=== PATIENT | female | born 1970 | race Two or more races ===

== ENCOUNTER 2018-11-23 03:04 | Emergency (ER) | payer BC ==
[~2018-11-23] VITALS: Ht 162.6 cm; Wt 88.5 kg
[2018-11-23] MEDS ORDERED: METFORMIN HCL1000 M1 ORAL (03:13)
[2018-11-23] MEDS ORDERED: SIMVASTATIN10 MG ORAL (03:13)
[2018-11-23 03:30] VITALS: BP 141/82
[2018-11-23] MEDS ORDERED: Mylanta II UD 30ml ORAL ONE (03:45)
[2018-11-23 04:17] LABS: EOSINOPHILS % (AUTO) 3.7 % (0.0-3.0); HEMATOCRIT 40.4 % (37.0-47.0); HEMOGLOBIN 13.1 G/DL (12.0-16.0); LYMPHOCYTES % (AUTO) 31.4 % (20.0-45.0); MEAN CORPUSCULAR VOLUME 84 FL (80-99); MONOCYTES % (AUTO) 6.9 % (1.0-10.0); PLATELET COUNT 194 K/UL (150-450); RED BLOOD COUNT 4.78 M/UL (4.20-5.40); RED CELL DISTRIBUTION WIDTH 13.4 % (11.6-14.8); WHITE BLOOD COUNT 5.7 K/UL (4.8-10.8)
[2018-11-23 04:23] LABS: APPEARANCE,URINE CLEAR; BILIRUBIN, URINE NEGATIVE (NEGATIVE); COLOR,URINE PALE YELLOW; GLUCOSE, URINE (UA) 4+ (NEGATIVE); KETONES,URINE NEGATIVE (NEGATIVE); LEUKOCYTE ESTERASE ,URINE NEGATIVE (NEGATIVE); NITRITE,URINE NEGATIVE (NEGATIVE); PH,URINE 5 (4.5-8.0); PROTEIN,URINE NEGATIVE (NEGATIVE); UROBILINOGEN,URINE NORMAL MG/DL (0.0-1.0)
[2018-11-23 04:28] LABS: ANION GAP 9 mmol/L (5-15); BLOOD UREA NITROGEN 9 mg/dL (7-18); CALCIUM 9.5 MG/DL (8.5-10.1); CARBON DIOXIDE 28 MMOL/L (21-32); CHLORIDE 100 MMOL/L (98-107); CREATININE 0.8 MG/DL (0.55-1.30); POTASSIUM 3.9 MMOL/L (3.5-5.1); SODIUM 137 MMOL/L (136-145)
[2018-11-23 04:50] LABS: ALANINE AMINOTRANSFERASE 73 U/L (12-78); ALBUMIN 3.8 G/DL (3.4-5.0); ALBUMIN/GLOBULIN RATIO 0.9 (1.0-2.7); ALKALINE PHOSPHATASE 85 U/L (46-116); ASPARTATE AMINO TRANSFERASE 44 U/L (15-37); BILIRUBIN,TOTAL 0.6 MG/DL (0.2-1.0); CKMB 1.4 NG/ML (0.0-3.6); CREATINE KINASE 75 U/L (26-308)
[2018-11-23 05:30] VITALS: BP 99/61
--- NOTE | 2018-11-23 05:40 | Emergency Room Report ---
History of Present Illness General Chief Complaint: Dyspnea/Respdistress Source: Patient Present Illness HPI This is a 48-year-old female with a history of diabetes. She presents with chief complaint of upper chest pain with nausea and vomiting. No diarrhea. Onset was about 2 hours ago. Several episode vomiting. No fever chills but no cough or congestion. Denies any other complaint. Allergies: Coded Allergies: AMOXICILLIN (Verified Allergy, Unknown, 11/23/18) Patient History Past Medical History: see triage record, old chart reviewed, DM Past Surgical History: other Pertinent Family History: none Social History: Denies: smoking Last Menstrual Period: 11/08/18 Now: No : 3 Para: 3 Immunizations: other Reviewed Nursing Documentation: PMH: Agreed; PSxH: Agreed Nursing Documentation-PMH Past Medical History: No History, Except For Hx Diabetes: Yes Review of Systems Eye: Denies: eye pain, blurred vision ENT: Denies: ear pain, nose congestion, throat swelling Respiratory: Denies: cough, shortness of breath Cardiovascular: Reports: chest pain; Denies: palpitations Gastrointestinal: Denies: abdominal pain, diarrhea, nausea, vomiting Musculoskeletal: Denies: back pain, joint pain Skin: Denies: rash Neurological: Denies: headache, numbness Endocrine: Denies: increased thirst, increased urine Hematologic/Lymphatic: Denies: easy bruising All Other Systems: negative except mentioned in HPI Physical Exam Vital Signs Date Time Temp Pulse Resp B/P (MAP) Pulse Ox O2 Delivery O2 Flow Rate FiO2 11/23/18 03:06 97.5 83 18 154/95 100 Room Air vitals normal except for hypertension Sp02 EP Interpretation: reviewed, normal General Appearance: well appearing, no apparent distress, alert Head: normocephalic, atraumatic Eyes: bilateral eye PERRL, bilateral eye EOMI ENT: hearing grossly normal, normal pharynx Neck: full range of motion, supple, no meningismus Respiratory: chest non-tender, lungs clear, normal breath sounds Cardiovascular #1: regular rate, rhythm, no murmur Gastrointestinal: normal bowel sounds, non tender, no mass, no organomegaly, no bruit, non-distended Musculoskeletal: back normal, gait/station normal, normal range of motion Psychiatric: mood/affect normal Skin: warm/dry Medical Decision Making Diagnostic Impression: Primary Impression: Shortness of breath Additional Impressions: Hyperglycemia due to type 2 diabetes mellitus Qualified Codes: E11.65 - Type 2 diabetes mellitus with hyperglycemia Nausea & vomiting Qualified Codes: R11.2 - Nausea with vomiting, unspecified ER Course Patient with shortness of breath with nausea and vomiting. No evidence of ACS, PE, dissection to name a few.. Dose of insulin given here for her diabetes. We 'll discharge home. EKG Diagnostic Results Rate: normal Rhythm: NSR ST Segments: no acute changes ASA given to the pt in ED: No Rhythm Strip Diag. Results EP Interpretation: yes Rate: 84 Rhythm: NSR, no PVC's, no ectopy Chest X-Ray Diagnostic Results Chest X-Ray Diagnostic Results : Chest X-Ray Ordered: Yes # of Views/Limited/Complete: 1 View Indication: Chest Pain EP Interpretation: Yes Interpretation: no consolidation, no effusion, no pneumothorax, no acute cardiopulmonary disease Impression: No acute disease Electronically Signed by: Jordi Prieto MD Last Vital Signs Date Time Temp Pulse Resp B/P (MAP) Pulse Ox O2 Delivery O2 Flow Rate FiO2 11/23/18 03:30 83 18 Room Air 11/23/18 03:30 98.4 141/82 100 Status: improved Disposition: HOME, SELF-CARE Condition: Stable Scripts Ondansetron (Zofran) 4 Mg Tablet 4 MG ORAL Q6H PRN for Nausea & Vomiting, #10 TAB 0 Refills Prov: Jordi Prieto MD 11/23/18 Referrals: NOT CHOSEN IPA/,REFERRING (PCP) Additional Instructions: Follow-up with your DrSterling in 2-3 days. Return if worse. Jordi Prieto MD Nov 23, 2018 05:40
[2018-11-23] MEDS ORDERED: Insulin Human Regular 100units/ml 3ml IV ONE (06:00)
[2018-11-23] MEDS ORDERED: ZOFRAN4 MG ORAL (06:04)
[2018-11-23 06:35] VITALS: BP 130/68
[2018-11-23 06:45] VITALS: BP 130/68
--- NOTE | 2018-11-23 09:25 | Diagnostic Imaging Report ---
Indication: Chest pain Technique: One view of the chest Comparison: none Findings: Lungs and pleural spaces are clear. Heart size is normal Impression: No acute process
== END 2018-11-23 06:58 | disposition home or self-care (01) ==
LOC: EMR 04:00
DX: R06.02 Shortness of breath (principal); E11.65 Type 2 diabetes mellitus with hyperglycemia; R11.2 Nausea with vomiting, unspecified; R07.9 Chest pain, unspecified; Z88.0 Allergy status to penicillin
CPT/HCPCS: 36415; 71045; 80053; 81003; 82550; 82553; 82962; 84484; 85025; 93005; 96361; 96374; 99284; J1815

== ENCOUNTER 2019-03-14 16:50 | Inpatient (IN) | payer BC ==
[~2019-03-14] VITALS: Ht 162.6 cm; Wt 89.8 kg
[~2019-03-14 16:50] MED LIST: METFORMIN HCL1000 M1 ORAL; SIMVASTATIN10 MG ORAL; ZOFRAN4 MG ORAL
--- NOTE | 2019-03-14 17:10 | NUR ---
ED Nurse Note: Patient presents to ER due to low abdominal pain that radiates to back , fever, chills for the past 4-5 days; Patient dx with UTI and has been taking Cipro. Patient AXOx4 and regular, unlabored breathing noted. Reports no N/V or D. Ambulated to the room with steady gait. Report given to ARLENE Douglas.
[2019-03-14] MEDS ORDERED: ACTOS15 MG ORAL (17:13)
[2019-03-14] MEDS ORDERED: Jardiance ORAL (17:13)
[2019-03-14 17:19] VITALS: BP 146/79
[2019-03-14] MEDS ORDERED: Isovue-300 100ml vial INJ PRN (17:30)
[2019-03-14 17:36] LABS: APPEARANCE,URINE SLIGHTLY CLOUDY; BILIRUBIN, URINE 1+ (NEGATIVE); GLUCOSE, URINE (UA) 4+ (NEGATIVE); KETONES,URINE NEGATIVE (NEGATIVE); NITRITE,URINE POSITIVE (NEGATIVE); PH,URINE 7 (4.5-8.0); UROBILINOGEN,URINE 4 MG/DL (0.0-1.0)
[2019-03-14 17:41] LABS: COLOR,URINE YELLOW; PROTEIN,URINE NEGATIVE (NEGATIVE)
[2019-03-14 17:47] LABS: LEUKOCYTE ESTERASE ,URINE 2+ (NEGATIVE)
--- NOTE | 2019-03-14 18:03 | NUR ---
ED Nurse Note: Patient c/o chills. Rectal temp take and ERMD notified.
[2019-03-14 18:05] LABS: BASOPHILS % (AUTO) 1.6 % (0.0-2.0); EOSINOPHILS % (AUTO) 0.4 % (0.0-3.0); HEMATOCRIT 40.9 % (37.0-47.0); HEMOGLOBIN 13.6 G/DL (12.0-16.0); LYMPHOCYTES % (AUTO) 14.8 % (20.0-45.0); MEAN CORPUSCULAR VOLUME 82 FL (80-99); MONOCYTES % (AUTO) 7.8 % (1.0-10.0); NEUTROPHILS % (AUTO) 75.4 % (45.0-75.0); PLATELET COUNT 214 K/UL (150-450); RED BLOOD COUNT 5.01 M/UL (4.20-5.40); RED CELL DISTRIBUTION WIDTH 12.9 % (11.6-14.8); WHITE BLOOD COUNT 5.5 K/UL (4.8-10.8)
[2019-03-14] MEDS ORDERED: Acetaminophen 500mg (ES) tab ORAL ONE (18:15)
[2019-03-14] MEDS ORDERED: Ketorolac 30mg Inj IV ONE (18:15)
[2019-03-14 18:21] LABS: ANION GAP 13 mmol/L (5-15); BLOOD UREA NITROGEN 9 mg/dL (7-18); CALCIUM 9.5 MG/DL (8.5-10.1); CARBON DIOXIDE 27 MMOL/L (21-32); CHLORIDE 96 MMOL/L (98-107); CREATININE 0.8 MG/DL (0.55-1.30); POTASSIUM 3.8 MMOL/L (3.5-5.1); SODIUM 136 MMOL/L (136-145)
[2019-03-14 18:37] LABS: ALANINE AMINOTRANSFERASE 42 U/L (12-78); ALBUMIN 3.9 G/DL (3.4-5.0); ALBUMIN/GLOBULIN RATIO 0.8 (1.0-2.7); ALKALINE PHOSPHATASE 86 U/L (46-116); ASPARTATE AMINO TRANSFERASE 34 U/L (15-37); BILIRUBIN,TOTAL 1.1 MG/DL (0.2-1.0)
[2019-03-14 18:43] LABS: BILIRUBIN,DIRECT 0.2 MG/DL (0.0-0.3)
[2019-03-14] MEDS ORDERED: Clindamycin 600mg 50 ML IVPB ONE (18:45)
--- NOTE | 2019-03-14 19:11 | Diagnostic Imaging Report ---
CT ABDOMEN + PELVIS With Contrast: Comparison: None. Impression: -Bilateral renal patchy areas of hypoattenuation with bilateral urothelial thickening of the ureters and enhancement of the urothelium of the ureters and the bladder are concerning for UTI with bilateral pyelonephritis. -No renal abscess noted on present study. -Normal appendix. -Scattered liquid small bowel contents, which could represent an infectious or inflammatory enteritis. Likely incidental. -Splenomegaly 15.6 cm AP, is of uncertain significance. Correlate clinically. -Likely benign right ovarian functional follicle.
--- NOTE | 2019-03-14 19:13 | NUR ---
HAND-OFF: Report given to Tita JACOBS.
--- NOTE | 2019-03-14 19:31 | Emergency Room Report ---
History of Present Illness General Chief Complaint: Female Urogenital Problems Source: Patient Present Illness [facility] Patient presents with complaints of right lower abdominal pain Reports that on Monday she was diagnosed with UTI by her primary physician has been placed on Cipro her pain however has moved from the suprapubic region now to the lower right abdomen patient feels febrile Increased nausea denies any chest pain or shortness of breath denies any upper abdominal pain denies any vaginal discharge or foul smell Allergies: Coded Allergies: AMOXICILLIN (Verified Allergy, Unknown, 11/23/18) Patient History Past Medical History: see triage record Pertinent Family History: none Last Menstrual Period: on period Reviewed Nursing Documentation: PMH: Agreed; PSxH: Agreed Nursing Documentation-PMH Past Medical History: No History, Except For Hx Diabetes: Yes Review of Systems All Other Systems: negative except mentioned in HPI Physical Exam Vital Signs Date Time Temp Pulse Resp B/P (MAP) Pulse Ox O2 Delivery O2 Flow Rate FiO2 03/14/19 17:07 98.4 106 19 146/79 (101) 96 Room Air Sp02 EP Interpretation: reviewed, normal General Appearance: mild distress - Appears uncomfortable Head: normocephalic, atraumatic Eyes: bilateral eye PERRL, bilateral eye EOMI ENT: hearing grossly normal, normal pharynx, TMs + canals normal, uvula midline Neck: full range of motion, supple, no meningismus, no bony tend Respiratory: lungs clear, normal breath sounds, no rhonchi, no respiratory distress, no retraction, no accessory muscle use Cardiovascular #1: normal peripheral pulses, regular rate, rhythm, no edema, no gallop, no JVD, no murmur Gastrointestinal: normal bowel sounds, non tender - On palpation however subjectively points to right lower quadrant, soft, no mass, no organomegaly, non -distended, no guarding, no hernia, no pulsatile mass, no rebound Genitourinary: no CVA tenderness Musculoskeletal: normal inspection Neurologic: oriented x3, responsive, active directory architect III-XII nml as tested, motor strength/ tone normal, sensory intact Psychiatric: mood/affect normal Skin: normal color, no rash, warm/dry, palpation normal Lymphatic: normal inspection, no adenopathy Medical Decision Making Diagnostic Impression: Primary Impression: Pyelonephritis ER Course With the patient's history and examination, multiple differentials considered, including but not limited to , ectopic , ovarian torsion, gastritis, cholecystitis, pancreatitis, appendicitis Patient's urine sample does show infectious pathology CT imaging shows evidence of bilateral Pyelonephritis given the patient's failed outpatient attempt given the significant discomfort and findings patient is admitted for continued IV antibiotics Labs Test 03/14/19 17:20 03/14/19 17:45 Urine Color Yellow Urine Appearance Slightly cloudy Urine pH 7 (4.5-8.0) Urine Specific [place] 1.005 (1.005-1.035) Urine Protein Negative (NEGATIVE) Urine Glucose (UA) 4+ (NEGATIVE) Urine Ketones Negative (NEGATIVE) Urine Blood 5+ (NEGATIVE) Urine Nitrite Positive (NEGATIVE) Urine Bilirubin 1+ (NEGATIVE) Urine Ictotest Negative (NEGATIVE) Urine Urobilinogen 4 MG/DL (0.0-1.0) Urine Leukocyte Esterase 2+ (NEGATIVE) Urine RBC 5-10 /HPF (0 - 2) Urine WBC 15-20 /HPF (0 - 2) Urine Squamous Epithelial Cells Few /LPF (NONE/OCC) Urine Bacteria Few /HPF (NONE) Urine HCG, Qualitative Negative (NEGATIVE) White Blood Count 5.5 K/UL (4.8-10.8) Red Blood Count 5.01 M/UL (4.20-5.40) Hemoglobin 13.6 G/DL (12.0-16.0) Hematocrit 40.9 % (37.0-47.0) Mean Corpuscular Volume 82 FL (80-99) Mean Corpuscular Hemoglobin 27.1 PG (27.0-31.0) Mean Corpuscular Hemoglobin Concent 33.3 G/DL (32.0-36.0) Red Cell Distribution Width 12.9 % (11.6-14.8) Platelet Count 214 K/UL (150-450) Mean Platelet Volume 8.5 FL (6.5-10.1) Neutrophils (%) (Auto) 75.4 % (45.0-75.0) Lymphocytes (%) (Auto) 14.8 % (20.0-45.0) Monocytes (%) (Auto) 7.8 % (1.0-10.0) Eosinophils (%) (Auto) 0.4 % (0.0-3.0) Basophils (%) (Auto) 1.6 % (0.0-2.0) Sodium Level 136 MMOL/L (136-145) Potassium Level 3.8 MMOL/L (3.5-5.1) Chloride Level 96 MMOL/L (98-107) Carbon Dioxide Level 27 MMOL/L (21-32) Anion Gap 13 mmol/L (5-15) Blood Urea Nitrogen 9 mg/dL (7-18) Creatinine 0.8 MG/DL (0.55-1.30) Estimat Glomerular Filtration Rate > 60 mL/min (>60) Glucose Level 226 MG/DL (74-106) Calcium Level 9.5 MG/DL (8.5-10.1) Total Bilirubin 1.1 MG/DL (0.2-1.0) Direct Bilirubin 0.2 MG/DL (0.0-0.3) Aspartate Amino Transf (AST/SGOT) 34 U/L (15-37) Alanine Aminotransferase (ALT/SGPT) 42 U/L (12-78) Alkaline Phosphatase 86 U/L (46-116) Total Protein 8.5 G/DL (6.4-8.2) Albumin 3.9 G/DL (3.4-5.0) Globulin 4.6 g/dL Albumin/Globulin Ratio 0.8 (1.0-2.7) Lipase 135 U/L (73-393) CT/MRI/US Diagnostic Results CT/MRI/US Diagnostic Results : Impression CT abdomen pelvisImpression: -Bilateral renal patchy areas of hypoattenuation with bilateral urothelial thickening of the ureters and enhancement of the urothelium of the ureters and the bladder are concerning for UTI with bilateral pyelonephritis. -No renal abscess noted on present study. -Normal appendix. -Scattered liquid small bowel contents, which could represent an infectious or inflammatory enteritis. Likely incidental. -Splenomegaly 15.6 cm AP, is of uncertain significance. Correlate clinically. -Likely benign right ovarian functional follicle. Last Vital Signs Date Time Temp Pulse Resp B/P (MAP) Pulse Ox O2 Delivery O2 Flow Rate FiO2 03/14/19 18:02 102.5 03/14/19 17:19 19 146/79 96 Room Air 03/14/19 17:07 106 Status: improved Disposition: ADMITTED INPATIENT Condition: Serious Haydee Ambriz DO Mar 14, 2019 19:31
[2019-03-14 21:20] VITALS: BP 146/79
--- NOTE | 2019-03-14 21:20 | NUR ---
ED Nurse Note: Patient was admited to MS due to severe UTI, and pyelonephritis. AAO x4, VSS at this time, skin is intact, warm to touch. Patient was transfered via gurney, with all belongings.
--- NOTE | 2019-03-14 21:25 | NUR ---
NURSE NOTES: Received report from Hira Anguiano RN. regarding patients transfer to MS floor from ED. Head to toe assessment initiated and noted with no skin issues observed. Belongings checked and noted with endorsing RN and patient at bedside. No S/S of distress or acute pain noted at this time. IV line intact and patent SL, placed on RA tolerating well with no S/S of resp distress or SOB. Safety precaution in place; siderails X2 up, call light within reach, bed in lowest position, brakes and alarm on at all times. Needs and wants anticipated and attended. Orders received and carried out per Christiana Ochoa MD. Will continue plan of care.
[2019-03-14 21:30] VITALS: BP 133/68
[2019-03-14] MEDS ORDERED: Albuterol/Ipratropium 3ml neb HHN PRN (21:30)
[2019-03-14] MEDS ORDERED: Nitroglycerin Subl 0.4mg tab SL PRN (21:30)
[2019-03-14] MEDS ORDERED: Amikacin Rx to dose MISC PRN (21:30)
[2019-03-14] MEDS ORDERED: Miralax 17gm pkt ORAL PRN (21:30)
[2019-03-14] MEDS ORDERED: Vancomycin 1 GM in D5W 275 ML IVPB SCH (22:00)
[2019-03-14] MEDS ORDERED: Amikacin 1,000 MG in NS 110 ML IV SCH (23:00)
[2019-03-14] MEDS: Aztreonam Inj 1 GM in NS 55 ML IVPB SCH (23:56)
[2019-03-15] VITALS: BP 135/73
[2019-03-15] MEDS ORDERED: Vancomycin 1 GM in D5W 275 ML IV SCH (00:30)
[2019-03-15] MEDS ORDERED: Vancomycin 1.25gm Premix IVPB ONE ×2 (03:00)
--- NOTE | 2019-03-15 03:25 | NUR ---
NURSE NOTES: Patient in bed asleep with no S/S of distress noted at this time. Will continue to monitor.
--- NOTE | 2019-03-15 03:50 | NUR ---
NURSE NOTES: Given Tylenol 650mg PO now for complaints of headache 12/02. Will continue to monitor
[2019-03-15 04:00] VITALS: BP 112/66
[2019-03-15] MEDS: NovoLOG Insulin Flexpen SUBQ SCH ×4 (06:37→20:52)
[2019-03-15] MEDS: Aztreonam Inj 1 GM in NS 55 ML IVPB SCH ×3 (06:38→22:04)
[2019-03-15 06:58] LABS: BASOPHILS % (AUTO) 1.7 % (0.0-2.0); EOSINOPHILS % (AUTO) 0.5 % (0.0-3.0); HEMATOCRIT 35.2 % (37.0-47.0); HEMOGLOBIN 11.5 G/DL (12.0-16.0); LYMPHOCYTES % (AUTO) 12.8 % (20.0-45.0); MEAN CORPUSCULAR VOLUME 84 FL (80-99); MONOCYTES % (AUTO) 10.5 % (1.0-10.0); NEUTROPHILS % (AUTO) 74.6 % (45.0-75.0); PLATELET COUNT 165 K/UL (150-450); RED CELL DISTRIBUTION WIDTH 13.3 % (11.6-14.8); WHITE BLOOD COUNT 4.6 K/UL (4.8-10.8)
[2019-03-15 07:04] LABS: ALANINE AMINOTRANSFERASE 41 U/L (12-78); ALBUMIN 2.9 G/DL (3.4-5.0); ALBUMIN/GLOBULIN RATIO 0.7 (1.0-2.7); ALKALINE PHOSPHATASE 73 U/L (46-116); ANION GAP 11 mmol/L (5-15); ASPARTATE AMINO TRANSFERASE 37 U/L (15-37); BILIRUBIN,TOTAL 0.8 MG/DL (0.2-1.0); BLOOD UREA NITROGEN 13 mg/dL (7-18); CALCIUM 8.8 MG/DL (8.5-10.1); CARBON DIOXIDE 24 MMOL/L (21-32); CHLORIDE 102 MMOL/L (98-107); CREATININE 0.9 MG/DL (0.55-1.30); POTASSIUM 3.8 MMOL/L (3.5-5.1); SODIUM 137 MMOL/L (136-145)
--- NOTE | 2019-03-15 07:40 | NUR ---
HAND-OFF: Report given to Keisha Recinos RN. Patient inn bed in stable condition, endorsed plan of care.
[2019-03-15 08:00] VITALS: BP 151/81
--- NOTE | 2019-03-15 08:04 | NUR ---
NURSE NOTES: Received report from ARLENE Larkin. Rounding done with outgoing nurse. Patient a/o x 4 lying on the bed. c/o abdominal pain as 7/10 and pain medicine will be given as MD ordered. Bed in lowest position, call light within reach. Will continue to monitor.
[2019-03-15] MEDS: Morphine Sulfate 2mg/ml Inj(IV/IM USE ONLY) IVP PRN ×2 (08:25→17:14)
[2019-03-15] MEDS: Heparin 5000 units/ml inj SUBQ SCH ×2 (08:26→20:50)
--- NOTE | 2019-03-15 10:30 | NUR ---
NURSE NOTES: Dr. Logan was notified regarding pt got temperature 101.4. is aware.
--- NOTE | 2019-03-15 10:57 | Consultation ---
History of Present Illness General Date patient seen: Mar 15, 2019 Chief Complaint: Female Urogenital Problems Reason for Consultation: Pylonephritis Present Illness HPI Ms. Mata is a 49 yo female with PMHx of DM who presented to the ED on 03/14 with Abdominal pain. She reports that she has had lower abdominal pain for a bout a week and fever. She went to her PMD and was given cipro for a uti. The abdominal pain has gotten worse. In the ED she was ferbiel to 102.[address] scan is consistent with B/L pylonephritis. Patient denies Allergic reaction to Amoxacillin Says that she used it for a infection and had no problems ID was consulted for pylonephritis PMHx/PSHx DM SocHx No E/T/D FamHx Not Contributory Allergies: Coded Allergies: AMOXICILLIN (Verified Allergy, Unknown, 11/23/18) Medication History Scheduled Metformin Hcl* (Metformin Hcl*), 1,000 MG ORAL BID, (Reported) Pioglitazone Hcl* (Actos*), Unknown Dose ORAL DAILY, (Reported) Simvastatin (Zocor), 10 MG ORAL BEDTIME, (Reported) [Jardiance], 10 MG ORAL DAILY, (Reported) Scheduled PRN Ondansetron (Zofran), 4 MG ORAL Q6H PRN for Nausea & Vomiting Patient History Healthcare decision maker Resuscitation status Full Code Advanced Directive on File No Review of Systems ROS Narrative 12 point ROS negative except as noted in the HPI Physical Exam Last 24 Hour Vital Signs Date Time Temp Pulse Resp B/P (MAP) Pulse Ox O2 Delivery O2 Flow Rate FiO2 03/15/19 09:00 102.0 03/15/19 08:00 101.4 99 16 151/81 (104) 99 03/15/19 04:00 100.4 100 20 112/66 (81) 95 03/15/19 00:00 98.1 83 18 135/73 (93) 98 03/14/19 22:01 Room Air 03/14/19 21:30 98.8 84 20 133/68 (89) 99 03/14/19 21:20 98.9 19 146/79 96 Room Air 03/14/19 21:20 98.8 19 146/79 96 Room Air 03/14/19 18:55 101.5 6/20/19 18:54 101.5 03/14/19 18:02 102.5 03/14/19 17:19 98.4 19 146/79 96 Room Air 03/14/19 17:07 98.4 106 19 146/79 (101) 96 Room Air Laboratory Tests Test 03/14/19 17:20 03/14/19 17:45 03/15/19 05:15 Urine Color Yellow Urine Appearance Slightly cloudy Urine pH 7 (4.5-8.0) Urine Specific [place] 1.005 (1.005-1.035) Urine Protein Negative (NEGATIVE) Urine Glucose (UA) 4+ (NEGATIVE) H Urine Ketones Negative (NEGATIVE) Urine Blood 5+ (NEGATIVE) H Urine Nitrite Positive (NEGATIVE) H Urine Bilirubin 1+ (NEGATIVE) H Urine Ictotest Negative (NEGATIVE) Urine Urobilinogen 4 MG/DL (0.0-1.0) H Urine Leukocyte Esterase 2+ (NEGATIVE) H Urine RBC 5-10 /HPF (0 - 2) H Urine WBC 15-20 /HPF (0 - 2) H Urine Squamous Epithelial Cells Few /LPF (NONE/OCC) Urine Bacteria Few /HPF (NONE) Urine HCG, Qualitative Negative (NEGATIVE) White Blood Count 5.5 K/UL (4.8-10.8) 4.6 K/UL (4.8-10.8) L Red Blood Count 5.01 M/UL (4.20-5.40) 4.20 M/UL (4.20-5.40) Hemoglobin 13.6 G/DL (12.0-16.0) 11.5 G/DL (12.0-16.0) L Hematocrit 40.9 % (37.0-47.0) 35.2 % (37.0-47.0) L Mean Corpuscular Volume 82 FL (80-99) 84 FL (80-99) Mean Corpuscular Hemoglobin 27.1 PG (27.0-31.0) 27.4 PG (27.0-31.0) Mean Corpuscular Hemoglobin Concent 33.3 G/DL (32.0-36.0) 32.7 G/DL (32.0-36.0) Red Cell Distribution Width 12.9 % (11.6-14.8) 13.3 % (11.6-14.8) Platelet Count 214 K/UL (150-450) 165 K/UL (150-450) Mean Platelet Volume 8.5 FL (6.5-10.1) 9.4 FL (6.5-10.1) Neutrophils (%) (Auto) 75.4 % (45.0-75.0) H 74.6 % (45.0-75.0) Lymphocytes (%) (Auto) 14.8 % (20.0-45.0) L 12.8 % (20.0-45.0) L Monocytes (%) (Auto) 7.8 % (1.0-10.0) 10.5 % (1.0-10.0) H Eosinophils (%) (Auto) 0.4 % (0.0-3.0) 0.5 % (0.0-3.0) Basophils (%) (Auto) 1.6 % (0.0-2.0) 1.7 % (0.0-2.0) Sodium Level 136 MMOL/L (136-145) 137 MMOL/L (136-145) Potassium Level 3.8 MMOL/L (3.5-5.1) 3.8 MMOL/L (3.5-5.1) Chloride Level 96 MMOL/L (98-107) L 102 MMOL/L (98-107) Carbon Dioxide Level 27 MMOL/L (21-32) 24 MMOL/L (21-32) Anion Gap 13 mmol/L (5-15) 11 mmol/L (5-15) Blood Urea Nitrogen 9 mg/dL (7-18) 13 mg/dL (7-18) Creatinine 0.8 MG/DL (0.55-1.30) 0.9 MG/DL (0.55-1.30) Estimat Glomerular Filtration Rate > 60 mL/min (>60) > 60 mL/min (>60) Glucose Level 226 MG/DL (74-106) H 285 MG/DL (74-106) H Calcium Level 9.5 MG/DL (8.5-10.1) 8.8 MG/DL (8.5-10.1) Total Bilirubin 1.1 MG/DL (0.2-1.0) H 0.8 MG/DL (0.2-1.0) Direct Bilirubin 0.2 MG/DL (0.0-0.3) Aspartate Amino Transf (AST/SGOT) 34 U/L (15-37) 37 U/L (15-37) Alanine Aminotransferase (ALT/SGPT) 42 U/L (12-78) 41 U/L (12-78) Alkaline Phosphatase 86 U/L (46-116) 73 U/L (46-116) Total Protein 8.5 G/DL (6.4-8.2) H 6.8 G/DL (6.4-8.2) Albumin 3.9 G/DL (3.4-5.0) 2.9 G/DL (3.4-5.0) L Globulin 4.6 g/dL 3.9 g/dL Albumin/Globulin Ratio 0.8 (1.0-2.7) L 0.7 (1.0-2.7) L Lipase 135 U/L (73-393) Random Amikacin Level 16.2 ug/mL Microbiology Date/Time Source Procedure Growth Status 03/14/19 17:20 Urine,Clean Catch Urine Culture - Preliminary Gram Negative Bacillus 1 Resulted Height (Feet): 5 Height (Inches): 4.00 Weight (Pounds): 198 Medications Current Medications Medications (Trade) Dose Ordered Sig/Bib Route PRN Reason Start Time Stop Time Status Last Admin Dose Admin Acetaminophen (Tylenol) 650 mg NOW ORAL 03/15/19 03:45 04/14/19 03:44 03/15/19 03:39 Acetaminophen (Tylenol) 650 mg Q4H PRN ORAL fever 03/14/19 21:30 04/13/19 21:29 03/15/19 08:24 Albuterol/ Ipratropium (Albuterol/ Ipratropium) 3 ml Q4H PRN HHN Shortness of Breath 03/14/19 21:30 03/19/19 21:29 Amikacin Protocol (Amikacin pharmacy to dose) 1 ea DAILY PRN MISC Per rx protocol 03/14/19 21:30 04/13/19 21:29 Amikacin Sulfate 1000 mg/Sodium Chloride 114 ml @ 114 mls/hr Q24H IV 03/14/19 23:00 03/21/19 22:59 03/15/19 00:18 Aztreonam 1 gm/ Sodium Chloride 55 ml @ 110 mls/hr EVERY 8 HOURS IVPB 03/14/19 22:00 03/21/19 21:59 03/15/19 06:38 Dextrose (Dextrose 50%) 25 ml Q30M PRN IV Hypoglycemia 03/14/19 21:30 04/13/19 21:29 Heparin Sodium (Porcine) (Heparin 5000 units/ml) 5,000 units EVERY 12 HOURS SUBQ 03/15/19 09:00 04/14/19 08:59 03/15/19 08:26 Insulin Aspart (NovoLOG) BEFORE MEALS AND HS SUBQ 03/15/19 06:30 04/14/19 06:29 03/15/19 06:37 Iopamidol (Isovue-300 100ml) 100 ml NOW PRN INJ Radiology Procedure 03/14/19 17:30 Morphine Sulfate (Morphine Sulfate) 2 mg Q4H PRN IVP Moderate Pain (Pain Scale 4-6) 03/14/19 21:30 03/21/19 21:29 03/15/19 08:25 Nitroglycerin (Ntg) 0.4 mg Q5M PRN SL Prn Chest Pain 03/14/19 21:30 04/13/19 21:29 Ondansetron HCl (Zofran) 4 mg Q6H PRN IVP Nausea & Vomiting 03/14/19 21:30 04/13/19 21:29 03/15/19 08:35 Polyethylene Glycol (Miralax) 17 gm DAILYPRN PRN ORAL Constipation 03/14/19 21:30 04/13/19 21:29 Temazepam (Restoril) 15 mg HSPRN PRN ORAL Insomnia 03/14/19 21:30 03/21/19 21:29 Vancomycin HCl (Vanco rx to dose) 1 ea DAILY PRN MISC Per rx protocol 03/14/19 21:45 04/13/19 21:44 Vancomycin HCl 750 mg/Sodium Chloride 275 ml @ 183.333 mls/hr Q12H IVPB 03/15/19 12:00 03/20/19 11:59 Objective Narrative Gen: NAD HEENT: NCAT, MMM, EOMI, PERRL, No Oral lesion, no scleral icterus NECK: full range of motion, supple, no meningismus, No LAD, No JVD LUNGS: CTAB, No W/C, No Accessory muscle use CARDS: RRR, S1, S2, No M/R/G, ABD: Soft, RLQ pain, ND, No R/G, + BS, No HSM, No Masses : Deferred Ext: C/C/E, Pulses 2+ B/L (DP, Rad): NEURO: A/O x 4, Strength and Sensation Grossly intact PSYCH: Normal mood and affect SKIN: Warm/dry, No rashes Assessment/Plan Assessment/Plan: Ms. Mata is a 49 yo female with PMHx of DM who presented to the ED on 03/14 with Abdominal pain. Pyelonephritis B/L UCx 03/14/19 - GNR Fever to 102.[address] abd 03/14/19 - Bilateral renal patchy areas of hypoattenuation with bilateral urothelial thickening of the ureters and enhancement of the urothelium of the ureters and the bladder are concerning for UTI with bilateral pyelonephritis. Scattered liquid small bowel contents, which could represent an infectious or inflammatory enteritis. Likely incidental. Splenomegaly 15.6 cm AP, is of uncertain significance. Correlate clinically. Likely benign right ovarian functional follicle. Diabetes PLAN: - Continue Amikacin #1 and Aztreonam #1 - S/P Vancomycin #1 - f/u Urine Cx and Blood Cx - Monitor CBC and Temps Thank you for this consult. We will continue to follow the patient during this hospitalization. Nicholas Logan MD Mar 15, 2019 10:57
[2019-03-15 12:00] VITALS: BP 129/65
[2019-03-15] MEDS ORDERED: Vancomycin 750mg/NS 275ml IVPB SCH ×2 (12:00)
--- NOTE | 2019-03-15 12:45 | Consultation ---
History of Present Illness General Date patient seen: Mar 15, 2019 Chief Complaint: Female Urogenital Problems Reason for Consultation: Pylonephritis Present Illness HPI 49 year old female with recent UTI who was started on Cipro, but her symptoms didn't improve presented to ER last night with complaints of right lower abdominal pain, her pain however has moved from the suprapubic region now to the lower right abdomen patient feels febrile. She was found to be septic and CT of abdomen showed pyelonephritis. She is allergic to Amoxicillin which make the treatment more challenging. Allergies: Coded Allergies: AMOXICILLIN (Verified Allergy, Unknown, 11/23/18) Medication History Scheduled Metformin Hcl* (Metformin Hcl*), 1,000 MG ORAL BID, (Reported) Pioglitazone Hcl* (Actos*), Unknown Dose ORAL DAILY, (Reported) Simvastatin (Zocor), 10 MG ORAL BEDTIME, (Reported) [Jardiance], 10 MG ORAL DAILY, (Reported) Scheduled PRN Ondansetron (Zofran), 4 MG ORAL Q6H PRN for Nausea & Vomiting Patient History Healthcare decision maker Resuscitation status Full Code Advanced Directive on File No Past Medical/Surgical History Past Medical/Surgical History: (1) Diabetes mellitus Review of Systems All Other Systems: negative except mentioned in HPI Physical Exam General Appearance: WD/WN Lines, tubes and drains: peripheral HEENT: normocephalic, atraumatic Neck: non-tender, supple Respiratory/Chest: chest wall non-tender, normal breath sounds Cardiovascular/Chest: normal peripheral pulses, regular rhythm, no gallop/ murmur Last 24 Hour Vital Signs Date Time Temp Pulse Resp B/P (MAP) Pulse Ox O2 Delivery O2 Flow Rate FiO2 03/15/19 09:00 102.0 03/15/19 08:00 101.4 99 16 151/81 (104) 99 03/15/19 04:00 100.4 100 20 112/66 (81) 95 03/15/19 00:00 98.1 83 18 135/73 (93) 98 03/14/19 22:01 Room Air 03/14/19 21:30 98.8 84 20 133/68 (89) 99 03/14/19 21:20 98.9 19 146/79 96 Room Air 03/14/19 21:20 98.8 19 146/79 96 Room Air 03/14/19 18:55 101.5 03/14/19 18:54 101.5 03/14/19 18:02 102.5 03/14/19 17:19 98.4 19 146/79 96 Room Air 03/14/19 17:07 98.4 106 19 146/79 (101) 96 Room Air Laboratory Tests Test 03/14/19 17:20 03/14/19 17:45 03/15/19 05:15 03/15/19 11:50 Urine Color Yellow Urine Appearance Slightly cloudy Urine pH 7 (4.5-8.0) Urine Specific [place] 1.005 (1.005-1.035) Urine Protein Negative (NEGATIVE) Urine Glucose (UA) 4+ (NEGATIVE) H Urine Ketones Negative (NEGATIVE) Urine Blood 5+ (NEGATIVE) H Urine Nitrite Positive (NEGATIVE) H Urine Bilirubin 1+ (NEGATIVE) H Urine Ictotest Negative (NEGATIVE) Urine Urobilinogen 4 MG/DL (0.0-1.0) H Urine Leukocyte Esterase 2+ (NEGATIVE) H Urine RBC 5-10 /HPF (0 - 2) H Urine WBC 15-20 /HPF (0 - 2) H Urine Squamous Epithelial Cells Few /LPF (NONE/OCC) Urine Bacteria Few /HPF (NONE) Urine HCG, Qualitative Negative (NEGATIVE) White Blood Count 5.5 K/UL (4.8-10.8) 4.6 K/UL (4.8-10.8) L Red Blood Count 5.01 M/UL (4.20-5.40) 4.20 M/UL (4.20-5.40) Hemoglobin 13.6 G/DL (12.0-16.0) 11.5 G/DL (12.0-16.0) L Hematocrit 40.9 % (37.0-47.0) 35.2 % (37.0-47.0) L Mean Corpuscular Volume 82 FL (80-99) 84 FL (80-99) Mean Corpuscular Hemoglobin 27.1 PG (27.0-31.0) 27.4 PG (27.0-31.0) Mean Corpuscular Hemoglobin Concent 33.3 G/DL (32.0-36.0) 32.7 G/DL (32.0-36.0) Red Cell Distribution Width 12.9 % (11.6-14.8) 13.3 % (11.6-14.8) Platelet Count 214 K/UL (150-450) 165 K/UL (150-450) Mean Platelet Volume 8.5 FL (6.5-10.1) 9.4 FL (6.5-10.1) Neutrophils (%) (Auto) 75.4 % (45.0-75.0) H 74.6 % (45.0-75.0) Lymphocytes (%) (Auto) 14.8 % (20.0-45.0) L 12.8 % (20.0-45.0) L Monocytes (%) (Auto) 7.8 % (1.0-10.0) 10.5 % (1.0-10.0) H Eosinophils (%) (Auto) 0.4 % (0.0-3.0) 0.5 % (0.0-3.0) Basophils (%) (Auto) 1.6 % (0.0-2.0) 1.7 % (0.0-2.0) Sodium Level 136 MMOL/L (136-145) 137 MMOL/L (136-145) Potassium Level 3.8 MMOL/L (3.5-5.1) 3.8 MMOL/L (3.5-5.1) Chloride Level 96 MMOL/L (98-107) L 102 MMOL/L (98-107) Carbon Dioxide Level 27 MMOL/L (21-32) 24 MMOL/L (21-32) Anion Gap 13 mmol/L (5-15) 11 mmol/L (5-15) Blood Urea Nitrogen 9 mg/dL (7-18) 13 mg/dL (7-18) Creatinine 0.8 MG/DL (0.55-1.30) 0.9 MG/DL (0.55-1.30) Estimat Glomerular Filtration Rate > 60 mL/min (>60) > 60 mL/min (>60) Glucose Level 226 MG/DL (74-106) H 285 MG/DL (74-106) H Calcium Level 9.5 MG/DL (8.5-10.1) 8.8 MG/DL (8.5-10.1) Total Bilirubin 1.1 MG/DL (0.2-1.0) H 0.8 MG/DL (0.2-1.0) Direct Bilirubin 0.2 MG/DL (0.0-0.3) Aspartate Amino Transf (AST/SGOT) 34 U/L (15-37) 37 U/L (15-37) Alanine Aminotransferase (ALT/SGPT) 42 U/L (12-78) 41 U/L (12-78) Alkaline Phosphatase 86 U/L (46-116) 73 U/L (46-116) Total Protein 8.5 G/DL (6.4-8.2) H 6.8 G/DL (6.4-8.2) Albumin 3.9 G/DL (3.4-5.0) 2.9 G/DL (3.4-5.0) L Globulin 4.6 g/dL 3.9 g/dL Albumin/Globulin Ratio 0.8 (1.0-2.7) L 0.7 (1.0-2.7) L Lipase 135 U/L (73-393) Random Amikacin Level 16.2 ug/mL Pending Microbiology Date/Time Source Procedure Growth Status 03/14/19 17:20 Urine,Clean Catch Urine Culture - Preliminary Gram Negative Bacillus 1 Resulted Height (Feet): 5 Height (Inches): 4.00 Weight (Pounds): 198 Medications Current Medications Medications (Trade) Dose Ordered Sig/Bib Route PRN Reason Start Time Stop Time Status Last Admin Dose Admin Acetaminophen (Tylenol) 650 mg NOW ORAL 03/15/19 03:45 04/14/19 03:44 03/15/19 03:39 Acetaminophen (Tylenol) 650 mg Q4H PRN ORAL fever 03/14/19 21:30 04/13/19 21:29 03/15/19 08:24 Albuterol/ Ipratropium (Albuterol/ Ipratropium) 3 ml Q4H PRN HHN Shortness of Breath 03/14/19 21:30 03/19/19 21:29 Aztreonam 1 gm/ Sodium Chloride 55 ml @ 110 mls/hr EVERY 8 HOURS IVPB 03/14/19 22:00 03/21/19 21:59 03/15/19 06:38 Dextrose (Dextrose 50%) 25 ml Q30M PRN IV Hypoglycemia 03/14/19 21:30 04/13/19 21:29 Heparin Sodium (Porcine) (Heparin 5000 units/ml) 5,000 units EVERY 12 HOURS SUBQ 03/15/19 09:00 04/14/19 08:59 03/15/19 08:26 Insulin Aspart (NovoLOG) BEFORE MEALS AND HS SUBQ 03/15/19 06:30 04/14/19 06:29 03/15/19 12:04 Iopamidol (Isovue-300 100ml) 100 ml NOW PRN INJ Radiology Procedure 03/14/19 17:30 Morphine Sulfate (Morphine Sulfate) 2 mg Q4H PRN IVP Moderate Pain (Pain Scale 4-6) 03/14/19 21:30 03/21/19 21:29 03/15/19 08:25 Nitroglycerin (Ntg) 0.4 mg Q5M PRN SL Prn Chest Pain 03/14/19 21:30 04/13/19 21:29 Ondansetron HCl (Zofran) 4 mg Q6H PRN IVP Nausea & Vomiting 03/14/19 21:30 04/13/19 21:29 03/15/19 08:35 Polyethylene Glycol (Miralax) 17 gm DAILYPRN PRN ORAL Constipation 03/14/19 21:30 04/13/19 21:29 Temazepam (Restoril) 15 mg HSPRN PRN ORAL Insomnia 03/14/19 21:30 03/21/19 21:29 Vancomycin HCl (Vanco rx to dose) 1 ea DAILY PRN MISC Per rx protocol 03/14/19 21:45 03/15/19 19:00 Vancomycin HCl 750 mg/Sodium Chloride 275 ml @ 183.333 mls/hr Q12H IVPB 03/15/19 12:00 03/20/19 11:59 03/15/19 12:02 Assessment/Plan Problem List: (1) Pyelonephritis ICD Codes: N12 - Tubulo-interstitial nephritis, not specified as acute or chronic SNOMED: 04754725 (2) Sepsis ICD Codes: A41.9 - Sepsis, unspecified organism SNOMED: 18721764 (3) Diabetes mellitus ICD Codes: E11.9 - Type 2 diabetes mellitus without complications SNOMED: 36342857 Assessment/Plan: iv abx urine culture and sensitivity symptomatic treatment check electrolytes dvt prophylaxis. Qi Ochoa MD Mar 15, 2019 12:45
--- NOTE | 2019-03-15 14:47 | NUR ---
*-* INSURANCE *-* ALL CLINICALS HAVE BEEN FAXED TO: [facility] FAX CLINICALS TO: [phone]
--- NOTE | 2019-03-15 15:42 | NUR ---
CASE MANAGEMENT:REVIEW 49 YR OLD FEMALE PRESENTED TO ER CC: ABDOMINAL PAIN RADIATING TO BACK X5 DAYS. FEVER AND CHILLS PMH: SEEN OUTPATIENT BY DR DHALIWAL AND WAS PRESCRIBED CIPRO AND PYRIDIUM SI: PYELONEPHRITIS 98.5 106 19 146/79 96% ON RA GLUCOSE+226 URINE WBC+15-20 IS: 1L NS BOLUS TYLENOL PO IV TORADOL IV CLINDAMYCIN CT ABD/PELVIS URINE REFLEX : TO MED/SURG 3 EAST INTERQUAL CRITERIA MET
[2019-03-15 16:00] VITALS: BP 141/75
[2019-03-15] MEDS: NS w/KCl 20mEq 1000ml 1,000 ML IV SCH (17:13)
--- NOTE | 2019-03-15 19:20 | NUR ---
HAND-OFF: Report given to ARLENE Perkins. Endorsed POC.
[2019-03-15 20:00] VITALS: BP 137/70
--- NOTE | 2019-03-15 20:10 | NUR ---
NURSE NOTES: Received patient awake in bed, no s/s of acute distress, no c/o pain at this time. Family at the bedside. IV access asymptomatic running IVF at 75ml/hr. Fall and safety precautions taken. BRP noted. Will monitor blood sugar closely.
--- NOTE | 2019-03-15 21:45 | History and Physical Report ---
DATE OF ADMISSION: 03/14/2019 CHIEF COMPLAINT: Pelvic pain as well as bilateral flank pain. HISTORY OF PRESENT ILLNESS: This is a 49-year-old very delightful [place]er female with past medical history significant for diabetes type 2, dyslipidemia, , who was presented to the emergency room complaining about abdominal pain associated with bilateral flank pain. It has been going on for almost a week. The patient went to see her primary physician and subsequently was prescribed Cipro for 7 days for urinary tract infection; however, status progressively worsening, pain become worsening associated with fever and chills. No nausea or vomiting. No hematuria. No double vision. Shortly after initial evaluation in the emergency, the patient was admitted to the hospital with sepsis secondary to urinary tract infection, possible pyelonephritis. PAST MEDICAL HISTORY/PAST SURGICAL HISTORY: As above history of diabetes type 2, dyslipidemia, . MEDICATIONS AT HOME: Significant for metformin, Actos, Zocor, and Jardiance. ALLERGIES: To penicillin with vaginal yeast. No rashes or anaphylaxis. FAMILY HISTORY: Brother early age at the age of 37 with coronary artery disease last year and father has a history of diabetes. Mother has history of heart disease. REVIEW OF SYSTEMS: Mostly as above, denies any dysuria, frequency, hematuria. The patient has urinary hesitancy. Denies any hemoptysis or hematochezia. Denies any bright red blood per rectum. Denies any loss of consciousness. Denies any double vision. Denies any fall or head trauma. PHYSICAL EXAMINATION: VITAL SIGNS: On admission, temperature 98.4, pulse of 106, respirations 19, blood pressure 146/79. GENERAL: The patient awake and responsive, no acute distress. HEAD AND NECK: Examination, pupils are equal and reactive to light. Extraocular movements intact. Neck was supple. No JVD. LUNGS: Good air entry. No wheeze or rales. HEART: S1, S2. Regular rate and rhythm. No gallops. ABDOMEN: Soft and nondistended. Tender over suprapubic area, bilateral flank tenderness, morbid obesity. No rebound tenderness. No fluid shift. EXTREMITIES: No cyanosis, clubbing, or edema. NEUROLOGIC: Cranial nerves II through XII grossly intact. Motor is 5/5 in all extremities. Gait is intact. RECTAL: Refused and deferred. GENITOURINARY: Refused and deferred. PSYCHIATRIC: Mood and affect are intact. LABORATORY AND DIAGNOSTIC DATA: Laboratory on admission WBC of 5.5, hemoglobin 13, hematocrit 40, platelets 214. Sodium 136, potassium 3.8, chloride 96, bicarbonate 27, BUN 9, creatinine 0.8, glucose 226, calcium is 9.5. Total bilirubin of 1.1, AST of 34, ALT of 42, alkaline phosphatase 86. Lipase is 135. Urinalysis, +4 glucose, negative ketone, positive nitrite, +2 leukocytes, and 5 to 10 rbc's, 15 to 20 wbc's. The patient had a CT scan of the abdomen pelvic done shows a scattered liquid small bowel content, which would represent an infectious or inflammatory enteritis, normal appendix, splenomegaly, likely benign right ovarian functional follicle, bilateral renal patchy area of hypoattenuation with bilateral urethral thickening of the ureter, enhancement concerned about UTI with bilateral hydronephrosis. ASSESSMENT: 1. Sepsis secondary to urinary tract infection with bilateral hydronephrosis. 2. Diabetes type 2. 3. Obesity. 4. Dyslipidemia. PLAN: Admit the patient to medical floor. We start the patient on broad-spectrum antibiotics with amikacin due to the patient has penicillin allergy. The patient's urine culture preliminary results gram-negative bacilli. We will follow up with Dr. Ochoa, Pulmonary Critical Care consultation as well as Dr. Nicholas Logan from [place]. We will follow up with culture. DVT prophylaxis, SCD. Code status is Full Code. Mir Carlson M.D. DR: Christine JOB#: [id number] CC:
[2019-03-16] VITALS: BP 127/70
[2019-03-16 04:00] VITALS: BP 135/79
[2019-03-16] MEDS: Aztreonam Inj 1 GM in NS 55 ML IVPB SCH ×3 (05:48→21:18)
[2019-03-16] MEDS: NS w/KCl 20mEq 1000ml 1,000 ML IV SCH ×2 (06:02→15:54)
[2019-03-16] MEDS: NovoLOG Insulin Flexpen SUBQ SCH ×4 (06:06→21:19)
[2019-03-16] MEDS: sitaGLIPtin 50mg tab ORAL SCH ×3 (06:08→06:14)
--- NOTE | 2019-03-16 06:54 | Pulmonology Progress Note ---
Assessment/Plan Problems: (1) Pyelonephritis (2) Sepsis (3) Diabetes mellitus Assessment/Plan GNR in urine, sensitivity pending continue abx f/u ID recommendations f/u wbc sliding scale diabetic diet symptomatic treatment dvt prophylaxis. Subjective ROS Limited/Unobtainable: No Interval Events: comfortably sleeping, no new complains Allergies: Coded Allergies: AMOXICILLIN (Verified Allergy, Unknown, 11/23/18) Objective Last 24 Hour Vital Signs Date Time Temp Pulse Resp B/P (MAP) Pulse Ox O2 Delivery O2 Flow Rate FiO2 03/16/19 04:00 98.0 82 18 135/79 (97) 99 03/16/19 00:04 99.3 03/16/19 00:00 99.0 87 20 127/70 (89) 99 03/15/19 23:15 Room Air 03/15/19 20:00 99.7 90 18 137/70 (92) 99 03/15/19 18:00 99.8 03/15/19 16:00 102.8 97 16 141/75 (97) 99 03/15/19 12:00 98.8 86 16 129/65 (86) 99 03/15/19 09:00 Room Air 03/15/19 09:00 102.0 03/15/19 08:00 101.4 99 16 151/81 (104) 99 Intake and Output 03/15/19 03/16/19 19:00 07:00 Intake Total 130 ml 525 ml Balance 130 ml 525 ml Intake IV Total 130 ml 525 ml # Voids 4 4 Objective General Appearance: WD/WN HEENT: atraumatic Respiratory/Chest: chest wall non-tender, normal breath sounds Breasts: no masses Cardiovascular: normal rate Abdomen: soft, non tender, no mass Genitourinary: normal external genitalia Extremities: no clubbing Microbiology Date/Time Source Procedure Growth Status 03/14/19 17:20 Urine,Clean Catch Urine Culture - Preliminary Gram Negative Bacillus 1 Resulted Laboratory Tests 03/15/19 11:50: Random Amikacin Level < 2.5 Current Medications Medications (Trade) Dose Ordered Sig/Bib Route PRN Reason Start Time Stop Time Status Last Admin Dose Admin Acetaminophen (Tylenol) 650 mg NOW ORAL 03/15/19 03:45 04/14/19 03:44 03/15/19 03:39 Acetaminophen (Tylenol) 650 mg Q4H PRN ORAL fever 03/14/19 21:30 04/13/19 21:29 03/15/19 23:34 Albuterol/ Ipratropium (Albuterol/ Ipratropium) 3 ml Q4H PRN HHN Shortness of Breath 03/14/19 21:30 03/19/19 21:29 Aztreonam 1 gm/ Sodium Chloride 55 ml @ 110 mls/hr EVERY 8 HOURS IVPB 03/14/19 22:00 03/21/19 21:59 03/16/19 05:48 Dextrose (Dextrose 50%) 25 ml Q30M PRN IV Hypoglycemia 03/14/19 21:30 04/13/19 21:29 Heparin Sodium (Porcine) (Heparin 5000 units/ml) 5,000 units EVERY 12 HOURS SUBQ 03/15/19 09:00 04/14/19 08:59 03/15/19 20:50 Insulin Aspart (NovoLOG) BEFORE MEALS AND HS SUBQ 03/15/19 06:30 04/14/19 06:29 03/16/19 06:06 Iopamidol (Isovue-300 100ml) 100 ml NOW PRN INJ Radiology Procedure 03/14/19 17:30 Morphine Sulfate (Morphine Sulfate) 2 mg Q4H PRN IVP Moderate Pain (Pain Scale 4-6) 03/14/19 21:30 03/21/19 21:29 03/15/19 17:14 Nitroglycerin (Ntg) 0.4 mg Q5M PRN SL Prn Chest Pain 03/14/19 21:30 04/13/19 21:29 Ondansetron HCl (Zofran) 4 mg Q6H PRN IVP Nausea & Vomiting 03/14/19 21:30 04/13/19 21:29 03/15/19 08:35 Polyethylene Glycol (Miralax) 17 gm DAILYPRN PRN ORAL Constipation 03/14/19 21:30 04/13/19 21:29 Potassium Chloride/Sodium Chloride 1,000 ml @ 75 mls/hr [id number] IV 03/15/19 17:00 04/14/19 16:59 03/15/19 17:13 Sitagliptin Phosphate (Januvia) 50 mg ACBREAKFAST ORAL 03/16/19 06:30 04/15/19 06:29 Temazepam (Restoril) 15 mg HSPRN PRN ORAL Insomnia 03/14/19 21:30 03/21/19 21:29 Qi Ochoa MD Mar 16, 2019 06:54
--- NOTE | 2019-03-16 07:00 | NUR ---
HAND-OFF: Report given to ARLENE John.
--- NOTE | 2019-03-16 07:53 | NUR ---
NURSE NOTES: Received report from Disha JACOBS. Patient is awake alert and oriented x4, no acute distress noted. IV intact and asymptomatic, running IVF as ordered. Patient is reporting pain rated 5-6/10 in posterior flank/lower back, offered patient pain medication but she states she does not want it at this time. Patient updated on plan of care, needs met at this time. Side rails upx2, bed low and locked, call light in reach. Will continue to monitor.
[2019-03-16 08:00] VITALS: BP 117/72
[2019-03-16] MEDS: Heparin 5000 units/ml inj SUBQ SCH ×2 (08:45→20:10)
[2019-03-16 08:48] LABS: BASOPHILS % (AUTO) 1.7 % (0.0-2.0); EOSINOPHILS % (AUTO) 1.9 % (0.0-3.0); HEMATOCRIT 35.5 % (37.0-47.0); HEMOGLOBIN 11.5 G/DL (12.0-16.0); LYMPHOCYTES % (AUTO) 32.7 % (20.0-45.0); MEAN CORPUSCULAR VOLUME 85 FL (80-99); NEUTROPHILS % (AUTO) 53.7 % (45.0-75.0); PLATELET COUNT 167 K/UL (150-450); RED BLOOD COUNT 4.17 M/UL (4.20-5.40); RED CELL DISTRIBUTION WIDTH 13.6 % (11.6-14.8); WHITE BLOOD COUNT 3.8 K/UL (4.8-10.8)
[2019-03-16 09:50] LABS: ALANINE AMINOTRANSFERASE 48 U/L (12-78); ALBUMIN 2.7 G/DL (3.4-5.0); ALBUMIN/GLOBULIN RATIO 0.6 (1.0-2.7); ALKALINE PHOSPHATASE 74 U/L (46-116); ANION GAP 9 mmol/L (5-15); ASPARTATE AMINO TRANSFERASE 43 U/L (15-37); BILIRUBIN,TOTAL 0.6 MG/DL (0.2-1.0); BLOOD UREA NITROGEN 10 mg/dL (7-18); CALCIUM 9.2 MG/DL (8.5-10.1); CARBON DIOXIDE 27 MMOL/L (21-32); CHLORIDE 107 MMOL/L (98-107); CREATININE 0.7 MG/DL (0.55-1.30); PHOSPHORUS 3.7 MG/DL (2.5-4.9); POTASSIUM 3.7 MMOL/L (3.5-5.1); SODIUM 143 MMOL/L (136-145)
[2019-03-16 12:00] VITALS: BP 122/71
--- NOTE | 2019-03-16 13:31 | Internal Med Progress Note ---
Subjective Date of Service: Mar 16, 2019 Physician Name Odom,Henri Attending Physician Mir Carlson MD Current Medications Medications (Trade) Dose Ordered Sig/Bib Route PRN Reason Start Time Stop Time Status Last Admin Dose Admin Acetaminophen (Tylenol) 650 mg NOW ORAL 03/15/19 03:45 04/14/19 03:44 03/15/19 03:39 Acetaminophen (Tylenol) 650 mg Q4H PRN ORAL fever 03/14/19 21:30 04/13/19 21:29 03/15/19 23:34 Albuterol/ Ipratropium (Albuterol/ Ipratropium) 3 ml Q4H PRN HHN Shortness of Breath 03/14/19 21:30 03/19/19 21:29 Aztreonam 1 gm/ Sodium Chloride 55 ml @ 110 mls/hr EVERY 8 HOURS IVPB 03/14/19 22:00 03/21/19 21:59 03/16/19 05:48 Dextrose (Dextrose 50%) 25 ml Q30M PRN IV Hypoglycemia 03/14/19 21:30 04/13/19 21:29 Heparin Sodium (Porcine) (Heparin 5000 units/ml) 5,000 units EVERY 12 HOURS SUBQ 03/15/19 09:00 04/14/19 08:59 03/16/19 08:45 Insulin Aspart (NovoLOG) BEFORE MEALS AND HS SUBQ 03/15/19 06:30 04/14/19 06:29 03/16/19 11:51 Iopamidol (Isovue-300 100ml) 100 ml NOW PRN INJ Radiology Procedure 03/14/19 17:30 Morphine Sulfate (Morphine Sulfate) 2 mg Q4H PRN IVP Moderate Pain (Pain Scale 4-6) 03/14/19 21:30 03/21/19 21:29 03/15/19 17:14 Nitroglycerin (Ntg) 0.4 mg Q5M PRN SL Prn Chest Pain 03/14/19 21:30 04/13/19 21:29 Ondansetron HCl (Zofran) 4 mg Q6H PRN IVP Nausea & Vomiting 03/14/19 21:30 04/13/19 21:29 03/15/19 08:35 Polyethylene Glycol (Miralax) 17 gm DAILYPRN PRN ORAL Constipation 03/14/19 21:30 04/13/19 21:29 03/16/19 11:57 Potassium Chloride/Sodium Chloride 1,000 ml @ 75 mls/hr [id number] IV 03/15/19 17:00 04/14/19 16:59 03/15/19 17:13 Sitagliptin Phosphate (Januvia) 50 mg ACBREAKFAST ORAL 03/16/19 06:30 04/15/19 06:29 Temazepam (Restoril) 15 mg HSPRN PRN ORAL Insomnia 03/14/19 21:30 03/21/19 21:29 Allergies: Coded Allergies: AMOXICILLIN (Verified Allergy, Unknown, 11/23/18) ROS Limited/Unobtainable: No Constitutional: Reports: no symptoms HEENT: Reports: no symptoms Cardiovascular: Reports: no symptoms Respiratory: Reports: no symptoms Gastrointestinal/Abdominal: Reports: no symptoms Genitourinary: Reports: burning, pain Neurologic/Psychiatric: Reports: no symptoms Subjective 49 YO F admitted with flank pain. Now pyelonephritis. Cover for Int med-DR Carlson Objective Last Vital Signs Date Time Temp Pulse Resp B/P (MAP) Pulse Ox O2 Delivery O2 Flow Rate FiO2 03/16/19 12:00 98.0 83 20 122/71 (88) 98 03/16/19 09:00 Room Air General Appearance: WD/WN, no apparent distress, alert EENT: PERRL/EOMI, normal ENT inspection, TMs normal Neck: non-tender, normal alignment, supple Cardiovascular: normal peripheral pulses, normal rate, regular rhythm, no gallop/murmur, no JVD Respiratory/Chest: chest wall non-tender, lungs clear, normal breath sounds, no respiratory distress, no accessory muscle use Abdomen: normal bowel sounds, non tender, soft, no organomegaly, no mass Extremities: normal range of motion 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, no motor/sensory deficits Skin: normal pigmentation, warm/dry Laboratory Tests Test 03/16/19 07:31 White Blood Count 3.8 K/UL (4.8-10.8) L Red Blood Count 4.17 M/UL (4.20-5.40) L Hemoglobin 11.5 G/DL (12.0-16.0) L Hematocrit 35.5 % (37.0-47.0) L Mean Corpuscular Volume 85 FL (80-99) Mean Corpuscular Hemoglobin 27.7 PG (27.0-31.0) Mean Corpuscular Hemoglobin Concent 32.5 G/DL (32.0-36.0) Red Cell Distribution Width 13.6 % (11.6-14.8) Platelet Count 167 K/UL (150-450) Mean Platelet Volume 8.5 FL (6.5-10.1) Neutrophils (%) (Auto) 53.7 % (45.0-75.0) Lymphocytes (%) (Auto) 32.7 % (20.0-45.0) Monocytes (%) (Auto) 10.0 % (1.0-10.0) Eosinophils (%) (Auto) 1.9 % (0.0-3.0) Basophils (%) (Auto) 1.7 % (0.0-2.0) Erythrocyte Sedimentation Rate 54 MM/HR (0-20) H Sodium Level 143 MMOL/L (136-145) Potassium Level 3.7 MMOL/L (3.5-5.1) Chloride Level 107 MMOL/L (98-107) Carbon Dioxide Level 27 MMOL/L (21-32) Anion Gap 9 mmol/L (5-15) Blood Urea Nitrogen 10 mg/dL (7-18) Creatinine 0.7 MG/DL (0.55-1.30) Estimat Glomerular Filtration Rate > 60 mL/min (>60) Glucose Level 167 MG/DL (74-106) #H Calcium Level 9.2 MG/DL (8.5-10.1) Phosphorus Level 3.7 MG/DL (2.5-4.9) Magnesium Level 1.8 MG/DL (1.8-2.4) Total Bilirubin 0.6 MG/DL (0.2-1.0) Aspartate Amino Transf (AST/SGOT) 43 U/L (15-37) H Alanine Aminotransferase (ALT/SGPT) 48 U/L (12-78) Alkaline Phosphatase 74 U/L (46-116) C-Reactive Protein, Quantitative 19.1 mg/dL (0.00-0.90) H Total Protein 6.9 G/DL (6.4-8.2) Albumin 2.7 G/DL (3.4-5.0) L Globulin 4.2 g/dL Albumin/Globulin Ratio 0.6 (1.0-2.7) L Microbiology Date/Time Source Procedure Growth Status 03/14/19 17:20 Urine,Clean Catch Urine Culture - Final Escherichia Coli Complete Intake and Output 03/15/19 03/16/19 19:00 07:00 Intake Total 130 ml 600 ml Balance 130 ml 600 ml Intake IV Total 130 ml 600 ml # Voids 4 4 Assessment/Plan Problem List: (1) Hypercholesterolemia (2) UTI (urinary tract infection) Assessment & Plan: E. Coli. ABX=aztreonam and amikacin. See ID note=Dr Logan (3) Pyelonephritis (4) Diabetes mellitus Assessment & Plan: Continue januvia and novolog sliding scale. Status: progressing Henri Odom MD Mar 16, 2019 13:31
[2019-03-16 16:00] VITALS: BP 132/75
--- NOTE | 2019-03-16 16:30 | NUR ---
CASE MANAGEMENT: REVIEW 03/16/2019 SI: PYELONEPHRITIS T 99 HR 87 RR 20 B/P 127/70 SATS 99% ON RA WBC 3.8 GLU 167 AST 43 IS: KCL IV @ 75 mL/HR AZTREONAM IV Q8H JANUVIA PO QAM INSULIN ASPART SUBQ AC/HS : TO MED/SURG [facility]
--- NOTE | 2019-03-16 19:51 | NUR ---
HAND-OFF: Report given to Ny JACOBS. Patient is in stable condition.
--- NOTE | 2019-03-16 19:52 | NUR ---
NURSE NOTES: Received report & pt from ARELNE John. Pt lying in bed, a&ox4, in room air, family member at bedside. No s/s of acute distress & c/o 8/10 pain at this time. Will give PRN pain med. IV site intact with IVF running as ordered. Bed in lowest position, call light within reach. Will continue to monitor.
[2019-03-16 20:00] VITALS: BP 138/82
[2019-03-16] MEDS: Morphine Sulfate 2mg/ml Inj(IV/IM USE ONLY) IVP PRN (20:10)
--- NOTE | 2019-03-16 21:39 | NUR ---
NURSE NOTES: Informed Dr. Ochoa of WBC 3.8
[2019-03-17] VITALS: BP 131/76
[2019-03-17 04:00] VITALS: BP 135/74
[2019-03-17] MEDS: NS w/KCl 20mEq 1000ml 1,000 ML IV SCH ×4 (04:35→23:00)
[2019-03-17] MEDS: sitaGLIPtin 50mg tab ORAL SCH (05:41)
[2019-03-17] MEDS: NovoLOG Insulin Flexpen SUBQ SCH ×4 (06:06→21:31)
[2019-03-17] MEDS: Aztreonam Inj 1 GM in NS 55 ML IVPB SCH (06:07)
[2019-03-17 07:23] LABS: BASOPHILS % (AUTO) 1.7 % (0.0-2.0); EOSINOPHILS % (AUTO) 2.8 % (0.0-3.0); HEMATOCRIT 33.2 % (37.0-47.0); MEAN CORPUSCULAR VOLUME 84 FL (80-99); MONOCYTES % (AUTO) 8.5 % (1.0-10.0); NEUTROPHILS % (AUTO) 44.1 % (45.0-75.0); PLATELET COUNT 183 K/UL (150-450); RED BLOOD COUNT 3.94 M/UL (4.20-5.40); RED CELL DISTRIBUTION WIDTH 13.4 % (11.6-14.8)
--- NOTE | 2019-03-17 07:23 | NUR ---
HAND-OFF: Report given to ARLENE John. Rounds done. Pt in stable condition.
[2019-03-17 07:40] LABS: ALANINE AMINOTRANSFERASE 46 U/L (12-78); ALBUMIN 2.7 G/DL (3.4-5.0); ALBUMIN/GLOBULIN RATIO 0.7 (1.0-2.7); ALKALINE PHOSPHATASE 83 U/L (46-116); ANION GAP 13 mmol/L (5-15); ASPARTATE AMINO TRANSFERASE 41 U/L (15-37); BILIRUBIN,TOTAL 0.5 MG/DL (0.2-1.0); BLOOD UREA NITROGEN 10 mg/dL (7-18); CALCIUM 9.1 MG/DL (8.5-10.1); CARBON DIOXIDE 23 MMOL/L (21-32); CHLORIDE 106 MMOL/L (98-107); CREATININE 0.7 MG/DL (0.55-1.30); PHOSPHORUS 4.4 MG/DL (2.5-4.9); POTASSIUM 3.8 MMOL/L (3.5-5.1); SODIUM 142 MMOL/L (136-145)
[2019-03-17 08:00] VITALS: BP 129/67
[2019-03-17] MEDS: Heparin 5000 units/ml inj SUBQ SCH ×2 (08:57→20:34)
--- NOTE | 2019-03-17 09:56 | Infectious Diseases Prog Note ---
Assessment/Plan Assessment/Plan Ms. Mata is a 49 yo female with PMHx of DM who presented to the ED on 03/14 with Abdominal pain. Pyelonephritis B/L UCx 03/14/19 - GNR Fever to 102.[address] abd 03/14/19 - Bilateral renal patchy areas of hypoattenuation with bilateral urothelial thickening of the ureters and enhancement of the urothelium of the ureters and the bladder are concerning for UTI with bilateral pyelonephritis. Scattered liquid small bowel contents, which could represent an infectious or inflammatory enteritis. Likely incidental. Splenomegaly 15.6 cm AP, is of uncertain significance. Correlate clinically. Likely benign right ovarian functional follicle. Diabetes PLAN: - Start Ceftriaxone #1 - 03/17/19 SP Amikacin #2 and Aztreonam #3 - 03/15/19 S/P Vancomycin #1 - Monitor CBC and Temps Thank you for this consult. We will continue to follow the patient during this hospitalization. Subjective Allergies: Coded Allergies: AMOXICILLIN (Verified Allergy, Unknown, 11/23/18) Subjective Afebrile No Leukocytosis Objective Vital Signs Last 24 Hour Vital Signs Date Time Temp Pulse Resp B/P (MAP) Pulse Ox O2 Delivery O2 Flow Rate FiO2 03/17/19 08:00 97.7 71 18 129/67 (87) 97 03/17/19 04:00 98.8 80 17 135/74 (94) 100 03/17/19 00:00 100.3 87 18 131/76 (94) 98 03/16/19 21:12 61 16 93 Room Air 21 03/16/19 21:00 Room Air 03/16/19 20:00 99.6 85 17 138/82 (100) 97 03/16/19 16:00 97.8 76 16 132/75 (94) 98 03/16/19 12:00 98.0 83 20 122/71 (88) 98 Height (Feet): 5 Height (Inches): 4.00 Weight (Pounds): 198 Objective Gen: NAD HEENT: NCAT, MMM, EOMI LUNGS: CTAB, No W CARDS: RRR, S1, S2 ABD: Soft, NT, ND, No R/G, + BS, No HSM, No Masses NEURO: A/O x 4, Strength and Sensation Grossly intact Microbiology Date/Time Source Procedure Growth Status 03/14/19 17:20 Urine,Clean Catch Urine Culture - Final Escherichia Coli Complete Laboratory Tests Test 03/17/19 05:00 White Blood Count 4.0 K/UL (4.8-10.8) L Red Blood Count 3.94 M/UL (4.20-5.40) L Hemoglobin 11.0 G/DL (12.0-16.0) L Hematocrit 33.2 % (37.0-47.0) L Mean Corpuscular Volume 84 FL (80-99) Mean Corpuscular Hemoglobin 27.8 PG (27.0-31.0) Mean Corpuscular Hemoglobin Concent 33.0 G/DL (32.0-36.0) Red Cell Distribution Width 13.4 % (11.6-14.8) Platelet Count 183 K/UL (150-450) Mean Platelet Volume 8.0 FL (6.5-10.1) Neutrophils (%) (Auto) 44.1 % (45.0-75.0) L Lymphocytes (%) (Auto) 43.0 % (20.0-45.0) Monocytes (%) (Auto) 8.5 % (1.0-10.0) Eosinophils (%) (Auto) 2.8 % (0.0-3.0) Basophils (%) (Auto) 1.7 % (0.0-2.0) Erythrocyte Sedimentation Rate 60 MM/HR (0-20) H Sodium Level 142 MMOL/L (136-145) Potassium Level 3.8 MMOL/L (3.5-5.1) Chloride Level 106 MMOL/L (98-107) Carbon Dioxide Level 23 MMOL/L (21-32) Anion Gap 13 mmol/L (5-15) Blood Urea Nitrogen 10 mg/dL (7-18) Creatinine 0.7 MG/DL (0.55-1.30) Estimat Glomerular Filtration Rate > 60 mL/min (>60) Glucose Level 155 MG/DL (74-106) H Calcium Level 9.1 MG/DL (8.5-10.1) Phosphorus Level 4.4 MG/DL (2.5-4.9) Magnesium Level 1.6 MG/DL (1.8-2.4) L Total Bilirubin 0.5 MG/DL (0.2-1.0) Aspartate Amino Transf (AST/SGOT) 41 U/L (15-37) H Alanine Aminotransferase (ALT/SGPT) 46 U/L (12-78) Alkaline Phosphatase 83 U/L (46-116) C-Reactive Protein, Quantitative 12.3 mg/dL (0.00-0.90) H Total Protein 6.8 G/DL (6.4-8.2) Albumin 2.7 G/DL (3.4-5.0) L Globulin 4.1 g/dL Albumin/Globulin Ratio 0.7 (1.0-2.7) L Current Medications Medications (Trade) Dose Ordered Sig/Bib Route PRN Reason Start Time Stop Time Status Last Admin Dose Admin Acetaminophen (Tylenol) 650 mg NOW ORAL 03/15/19 03:45 04/14/19 03:44 03/17/19 04:40 Acetaminophen (Tylenol) 650 mg Q4H PRN ORAL fever 03/14/19 21:30 04/13/19 21:29 03/15/19 23:34 Albuterol/ Ipratropium (Albuterol/ Ipratropium) 3 ml Q4H PRN HHN Shortness of Breath 03/14/19 21:30 03/19/19 21:29 Aztreonam 1 gm/ Sodium Chloride 55 ml @ 110 mls/hr EVERY 8 HOURS IVPB 03/14/19 22:00 03/21/19 21:59 03/17/19 06:07 Dextrose (Dextrose 50%) 25 ml Q30M PRN IV Hypoglycemia 03/14/19 21:30 04/13/19 21:29 Heparin Sodium (Porcine) (Heparin 5000 units/ml) 5,000 units EVERY 12 HOURS SUBQ 03/15/19 09:00 04/14/19 08:59 03/17/19 08:57 Insulin Aspart (NovoLOG) BEFORE MEALS AND HS SUBQ 03/15/19 06:30 04/14/19 06:29 03/17/19 06:06 Iopamidol (Isovue-300 100ml) 100 ml NOW PRN INJ Radiology Procedure 03/14/19 17:30 Morphine Sulfate (Morphine Sulfate) 2 mg Q4H PRN IVP Moderate Pain (Pain Scale 4-6) 03/14/19 21:30 03/21/19 21:29 03/16/19 20:10 Nitroglycerin (Ntg) 0.4 mg Q5M PRN SL Prn Chest Pain 03/14/19 21:30 04/13/19 21:29 Ondansetron HCl (Zofran) 4 mg Q6H PRN IVP Nausea & Vomiting 03/14/19 21:30 04/13/19 21:29 03/15/19 08:35 Polyethylene Glycol (Miralax) 17 gm DAILYPRN PRN ORAL Constipation 03/14/19 21:30 04/13/19 21:29 03/16/19 11:57 Potassium Chloride/Sodium Chloride 1,000 ml @ 75 mls/hr [id number] IV 03/15/19 17:00 04/14/19 16:59 03/17/19 08:57 Sitagliptin Phosphate (Januvia) 50 mg ACBREAKFAST ORAL 03/16/19 06:30 04/15/19 06:29 Temazepam (Restoril) 15 mg HSPRN PRN ORAL Insomnia 03/14/19 21:30 03/21/19 21:29 Nicholas Logan MD Mar 17, 2019 09:56
[2019-03-17 12:00] VITALS: BP 125/74
[2019-03-17] MEDS: cefTRIAXone 1 GM in D5W 55 ML IVPB SCH (12:24)
--- NOTE | 2019-03-17 12:28 | NUR ---
NURSE NOTES: Patient started on Rocephin antibiotic. MD and pharmacist aware of patient's allergy to amoxicillin. Inquired with patient what her reaction was and she stated "vaginal yeast infections." Informed pharmacist. Will monitor patient for any adverse reactions.
[2019-03-17] MEDS ORDERED: Tubing IV Secondary IV ONE (13:08)
--- NOTE | 2019-03-17 14:00 | NUR ---
Patient had no adverse reaction to antibiotic.
--- NOTE | 2019-03-17 14:24 | Internal Med Progress Note ---
Subjective Date of Service: Mar 17, 2019 Physician Name Odom,Henri Attending Physician Mir Carlson MD Current Medications Medications (Trade) Dose Ordered Sig/Bib Route PRN Reason Start Time Stop Time Status Last Admin Dose Admin Acetaminophen (Tylenol) 650 mg NOW ORAL 03/15/19 03:45 04/14/19 03:44 03/17/19 04:40 Acetaminophen (Tylenol) 650 mg Q4H PRN ORAL fever 03/14/19 21:30 04/13/19 21:29 03/15/19 23:34 Albuterol/ Ipratropium (Albuterol/ Ipratropium) 3 ml Q4H PRN HHN Shortness of Breath 03/14/19 21:30 03/19/19 21:29 Ceftriaxone Sodium 1 gm/ Dextrose 55 ml @ 110 mls/hr DAILY IVPB 03/17/19 12:00 03/24/19 11:59 03/17/19 12:24 Dextrose (Dextrose 50%) 25 ml Q30M PRN IV Hypoglycemia 03/14/19 21:30 04/13/19 21:29 Heparin Sodium (Porcine) (Heparin 5000 units/ml) 5,000 units EVERY 12 HOURS SUBQ 03/15/19 09:00 04/14/19 08:59 03/17/19 08:57 Insulin Aspart (NovoLOG) BEFORE MEALS AND HS SUBQ 03/15/19 06:30 04/14/19 06:29 03/17/19 11:56 Iopamidol (Isovue-300 100ml) 100 ml NOW PRN INJ Radiology Procedure 03/14/19 17:30 Morphine Sulfate (Morphine Sulfate) 2 mg Q4H PRN IVP Moderate Pain (Pain Scale 4-6) 03/14/19 21:30 03/21/19 21:29 03/16/19 20:10 Nitroglycerin (Ntg) 0.4 mg Q5M PRN SL Prn Chest Pain 03/14/19 21:30 04/13/19 21:29 Ondansetron HCl (Zofran) 4 mg Q6H PRN IVP Nausea & Vomiting 03/14/19 21:30 04/13/19 21:29 03/15/19 08:35 Polyethylene Glycol (Miralax) 17 gm DAILYPRN PRN ORAL Constipation 03/14/19 21:30 04/13/19 21:29 03/16/19 11:57 Potassium Chloride/Sodium Chloride 1,000 ml @ 75 mls/hr [id number] IV 03/15/19 17:00 04/14/19 16:59 03/17/19 08:57 Sitagliptin Phosphate (Januvia) 50 mg ACBREAKFAST ORAL 03/16/19 06:30 04/15/19 06:29 Temazepam (Restoril) 15 mg HSPRN PRN ORAL Insomnia 03/14/19 21:30 03/21/19 21:29 Allergies: Coded Allergies: AMOXICILLIN (Verified Allergy, Unknown, 11/23/18) ROS Limited/Unobtainable: No Constitutional: Reports: no symptoms HEENT: Reports: no symptoms Cardiovascular: Reports: no symptoms Respiratory: Reports: no symptoms Gastrointestinal/Abdominal: Reports: abdominal pain Genitourinary: Reports: no symptoms Neurologic/Psychiatric: Reports: no symptoms Subjective 49 YO F admitted with flank pain. Now pyelonephritis. Cover for Int [email or web address]-DR Carlson Objective Last Vital Signs Date Time Temp Pulse Resp B/P (MAP) Pulse Ox O2 Delivery O2 Flow Rate FiO2 03/17/19 12:00 97.5 80 18 125/74 (91) 100 03/17/19 09:00 Room Air 03/16/19 21:12 21 Laboratory Tests Test 03/17/19 05:00 White Blood Count 4.0 K/UL (4.8-10.8) L Red Blood Count 3.94 M/UL (4.20-5.40) L Hemoglobin 11.0 G/DL (12.0-16.0) L Hematocrit 33.2 % (37.0-47.0) L Mean Corpuscular Volume 84 FL (80-99) Mean Corpuscular Hemoglobin 27.8 PG (27.0-31.0) Mean Corpuscular Hemoglobin Concent 33.0 G/DL (32.0-36.0) Red Cell Distribution Width 13.4 % (11.6-14.8) Platelet Count 183 K/UL (150-450) Mean Platelet Volume 8.0 FL (6.5-10.1) Neutrophils (%) (Auto) 44.1 % (45.0-75.0) L Lymphocytes (%) (Auto) 43.0 % (20.0-45.0) Monocytes (%) (Auto) 8.5 % (1.0-10.0) Eosinophils (%) (Auto) 2.8 % (0.0-3.0) Basophils (%) (Auto) 1.7 % (0.0-2.0) Erythrocyte Sedimentation Rate 60 MM/HR (0-20) H Sodium Level 142 MMOL/L (136-145) Potassium Level 3.8 MMOL/L (3.5-5.1) Chloride Level 106 MMOL/L (98-107) Carbon Dioxide Level 23 MMOL/L (21-32) Anion Gap 13 mmol/L (5-15) Blood Urea Nitrogen 10 mg/dL (7-18) Creatinine 0.7 MG/DL (0.55-1.30) Estimat Glomerular Filtration Rate > 60 mL/min (>60) Glucose Level 155 MG/DL (74-106) H Calcium Level 9.1 MG/DL (8.5-10.1) Phosphorus Level 4.4 MG/DL (2.5-4.9) Magnesium Level 1.6 MG/DL (1.8-2.4) L Total Bilirubin 0.5 MG/DL (0.2-1.0) Aspartate Amino Transf (AST/SGOT) 41 U/L (15-37) H Alanine Aminotransferase (ALT/SGPT) 46 U/L (12-78) Alkaline Phosphatase 83 U/L (46-116) C-Reactive Protein, Quantitative 12.3 mg/dL (0.00-0.90) H Total Protein 6.8 G/DL (6.4-8.2) Albumin 2.7 G/DL (3.4-5.0) L Globulin 4.1 g/dL Albumin/Globulin Ratio 0.7 (1.0-2.7) L Microbiology Date/Time Source Procedure Growth Status 03/14/19 17:20 Urine,Clean Catch Urine Culture - Final Escherichia Coli Complete Intake and Output 03/16/19 03/17/19 19:00 07:00 Intake Total 1725 ml 1325 ml Balance 1725 ml 1325 ml Intake Oral 1200 ml 500 ml IV Total 525 ml 825 ml # Voids 3 3 Objective General Appearance: WD/WN, no apparent distress, alert EENT: PERRL/EOMI, normal ENT inspection, TMs normal Neck: non-tender, normal alignment, supple Cardiovascular: normal peripheral pulses, normal rate, regular rhythm, no gallop/murmur, no JVD Respiratory/Chest: chest wall non-tender, lungs clear, normal breath sounds, no respiratory distress, no accessory muscle use Abdomen: normal bowel sounds, non tender, soft, no organomegaly, no mass Extremities: normal range of motion Neurologic: lead carpenter II-XII grossly normal, no motor/sensory deficits Skin: normal pigmentation, warm/dry Assessment/Plan Problem List: (1) Hypercholesterolemia (2) UTI (urinary tract infection) Assessment & Plan: E. Coli. ABX=ceftriaxone. See ID note=Dr Logan (3) Pyelonephritis (4) Diabetes mellitus Assessment & Plan: Continue januvia and novolog sliding scale. Henri Odom MD Mar 17, 2019 14:24
--- NOTE | 2019-03-17 14:51 | Pulmonology Progress Note ---
Assessment/Plan Problems: (1) Pyelonephritis (2) Sepsis (3) Diabetes mellitus Assessment/Plan improving GNR in urine, sensitivity pending continue abx f/u ID recommendations f/u wbc sliding scale diabetic diet symptomatic treatment dvt prophylaxis. Subjective ROS Limited/Unobtainable: No Constitutional: Reports: no symptoms HEENT: Repors: no symptoms Respiratory: Reports: no symptoms Allergies: Coded Allergies: AMOXICILLIN (Verified Allergy, Unknown, 11/23/18) Objective Last 24 Hour Vital Signs Date Time Temp Pulse Resp B/P (MAP) Pulse Ox O2 Delivery O2 Flow Rate FiO2 03/17/19 12:00 97.5 80 18 125/74 (91) 100 03/17/19 09:00 Room Air 03/17/19 08:00 97.7 71 18 129/67 (87) 97 03/17/19 04:00 98.8 80 17 135/74 (94) 100 03/17/19 00:00 100.3 87 18 131/76 (94) 98 03/16/19 21:12 61 16 93 Room Air 21 03/16/19 21:00 Room Air 03/16/19 20:00 99.6 85 17 138/82 (100) 97 03/16/19 16:00 97.8 76 16 132/75 (94) 98 Intake and Output 03/16/19 03/17/19 19:00 07:00 Intake Total 1725 ml 1325 ml Balance 1725 ml 1325 ml Intake Oral 1200 ml 500 ml IV Total 525 ml 825 ml # Voids 3 3 Objective General Appearance: WD/WN HEENT: atraumatic Respiratory/Chest: chest wall non-tender, normal breath sounds Breasts: no masses Cardiovascular: normal rate Abdomen: soft, non tender, no mass Genitourinary: normal external genitalia Extremities: no clubbing Microbiology Date/Time Source Procedure Growth Status 03/14/19 17:20 Urine,Clean Catch Urine Culture - Final Escherichia Coli Complete Laboratory Tests 03/17/19 05:00: White Blood Count 4.0L, Red Blood Count 3.94L, Hemoglobin 11.0L, Hematocrit 33.2L, Mean Corpuscular Volume 84, Mean Corpuscular Hemoglobin 27.8, Mean Corpuscular Hemoglobin Concent 33.0, Red Cell Distribution Width 13.4, Platelet Count 183, Mean Platelet Volume 8.0, Neutrophils (%) (Auto) 44.1L, Lymphocytes ( %) (Auto) 43.0, Monocytes (%) (Auto) 8.5, Eosinophils (%) (Auto) 2.8, Basophils (%) (Auto) 1.7, Erythrocyte Sedimentation Rate 60H, Sodium Level 142, Potassium Level 3.8, Chloride Level 106, Carbon Dioxide Level 23, Anion Gap 13, Blood Urea Nitrogen 10, Creatinine 0.7, Estimat Glomerular Filtration Rate > 60, Glucose Level 155H, Calcium Level 9.1, Phosphorus Level 4.4, Magnesium Level 1.6L, Total Bilirubin 0.5, Aspartate Amino Transf (AST/SGOT) 41H, Alanine Aminotransferase (ALT/SGPT) 46, Alkaline Phosphatase 83, C-Reactive Protein, Quantitative 12.3H, Total Protein 6.8, Albumin 2.7L, Globulin 4.1, Albumin/ Globulin Ratio 0.7L Current Medications Medications (Trade) Dose Ordered Sig/Bib Route PRN Reason Start Time Stop Time Status Last Admin Dose Admin Acetaminophen (Tylenol) 650 mg NOW ORAL 03/15/19 03:45 04/14/19 03:44 03/17/19 04:40 Acetaminophen (Tylenol) 650 mg Q4H PRN ORAL fever 03/14/19 21:30 04/13/19 21:29 03/15/19 23:34 Albuterol/ Ipratropium (Albuterol/ Ipratropium) 3 ml Q4H PRN HHN Shortness of Breath 03/14/19 21:30 03/19/19 21:29 Ceftriaxone Sodium 1 gm/ Dextrose 55 ml @ 110 mls/hr DAILY IVPB 03/17/19 12:00 03/24/19 11:59 03/17/19 12:24 Dextrose (Dextrose 50%) 25 ml Q30M PRN IV Hypoglycemia 03/14/19 21:30 04/13/19 21:29 Heparin Sodium (Porcine) (Heparin 5000 units/ml) 5,000 units EVERY 12 HOURS SUBQ 03/15/19 09:00 04/14/19 08:59 03/17/19 08:57 Insulin Aspart (NovoLOG) BEFORE MEALS AND HS SUBQ 03/15/19 06:30 04/14/19 06:29 03/17/19 11:56 Iopamidol (Isovue-300 100ml) 100 ml NOW PRN INJ Radiology Procedure 03/14/19 17:30 Morphine Sulfate (Morphine Sulfate) 2 mg Q4H PRN IVP Moderate Pain (Pain Scale 4-6) 03/14/19 21:30 03/21/19 21:29 03/16/19 20:10 Nitroglycerin (Ntg) 0.4 mg Q5M PRN SL Prn Chest Pain 03/14/19 21:30 04/13/19 21:29 Ondansetron HCl (Zofran) 4 mg Q6H PRN IVP Nausea & Vomiting 03/14/19 21:30 04/13/19 21:29 03/15/19 08:35 Polyethylene Glycol (Miralax) 17 gm DAILYPRN PRN ORAL Constipation 03/14/19 21:30 04/13/19 21:29 03/16/19 11:57 Potassium Chloride/Sodium Chloride 1,000 ml @ 75 mls/hr [id number] IV 03/15/19 17:00 04/14/19 16:59 03/17/19 08:57 Sitagliptin Phosphate (Januvia) 50 mg ACBREAKFAST ORAL 03/16/19 06:30 04/15/19 06:29 Temazepam (Restoril) 15 mg HSPRN PRN ORAL Insomnia 03/14/19 21:30 03/21/19 21:29 Qi Ochoa MD Mar 17, 2019 14:51
[2019-03-17 16:00] VITALS: BP 136/79
--- NOTE | 2019-03-17 17:08 | NUR ---
CASE MANAGEMENT: REVIEW 03/17/2019 SI: PYELONEPHRITIS T 97.5 HR 80 RR 18 B/P 125/74 SATS 100% ON RA WBC 4 GLU 155 MG 1.6 AST 41 IS: KCL IV @ 75 mL/HR AZTREONAM IV Q8H JANUVIA PO QAM INSULIN ASPART SUBQ AC/HS : TO MED/SURG [facility]
--- NOTE | 2019-03-17 19:30 | NUR ---
HAND-OFF: Report given to Coni JACOBS. Patient is in stable condition.
[2019-03-17 20:00] VITALS: BP 137/82
--- NOTE | 2019-03-17 21:00 | NUR ---
NURSE NOTES: Received a report from ARLENE John. Pt is awake and alert. Family members are bed side supporting her. No acute distress noted. No pain noted. Pt ambulates by herself and refuses to get Heparin SC. Leave call light within reach. Bed is locked with lowest position. Will continue to monitor.
[2019-03-18] VITALS: BP 121/63
[2019-03-18 04:00] VITALS: BP 129/76
[2019-03-18] MEDS: sitaGLIPtin 50mg tab ORAL SCH ×2 (06:25→06:30)
[2019-03-18] MEDS: NovoLOG Insulin Flexpen SUBQ SCH ×2 (06:27→12:52)
--- NOTE | 2019-03-18 07:30 | NUR ---
NURSE NOTES: Patient is in bed asleep. Stable. no facial grimacing or signs of discomfort noted. All safety measures provided. Patient is in bed in locked and lowest position with call light within reach. Will continue to monitor.
--- NOTE | 2019-03-18 07:30 | NUR ---
HAND-OFF: Report given to ARLENE Kwon. Pt is asleep in stable condition.
[2019-03-18 08:00] VITALS: BP 127/78
[2019-03-18 08:27] LABS: BASOPHILS % (AUTO) 1.3 % (0.0-2.0); HEMATOCRIT 34.1 % (37.0-47.0); HEMOGLOBIN 11.1 G/DL (12.0-16.0); LYMPHOCYTES % (AUTO) 35.4 % (20.0-45.0); MEAN CORPUSCULAR VOLUME 84 FL (80-99); MONOCYTES % (AUTO) 8.3 % (1.0-10.0); NEUTROPHILS % (AUTO) 52.1 % (45.0-75.0); PLATELET COUNT 214 K/UL (150-450); RED BLOOD COUNT 4.05 M/UL (4.20-5.40); RED CELL DISTRIBUTION WIDTH 13.3 % (11.6-14.8); WHITE BLOOD COUNT 3.7 K/UL (4.8-10.8)
[2019-03-18] MEDS: NS w/KCl 20mEq 1000ml 1,000 ML IV SCH (08:49)
[2019-03-18] MEDS: cefTRIAXone 1 GM in D5W 55 ML IVPB SCH (08:49)
[2019-03-18 08:51] LABS: ALANINE AMINOTRANSFERASE 65 U/L (12-78); ALBUMIN/GLOBULIN RATIO 0.8 (1.0-2.7); ALKALINE PHOSPHATASE 104 U/L (46-116); ANION GAP 9 mmol/L (5-15); ASPARTATE AMINO TRANSFERASE 57 U/L (15-37); BILIRUBIN,TOTAL 0.4 MG/DL (0.2-1.0); BLOOD UREA NITROGEN 10 mg/dL (7-18); CALCIUM 9.3 MG/DL (8.5-10.1); CARBON DIOXIDE 27 MMOL/L (21-32); CHLORIDE 106 MMOL/L (98-107); CREATININE 0.7 MG/DL (0.55-1.30); PHOSPHORUS 4.6 MG/DL (2.5-4.9); POTASSIUM 4.1 MMOL/L (3.5-5.1); SODIUM 142 MMOL/L (136-145)
[2019-03-18] MEDS: Heparin 5000 units/ml inj SUBQ SCH (09:00)
--- NOTE | 2019-03-18 09:27 | NUR ---
CASE MANAGEMENT:REVIEW 03/18/19 SI: SEPSIS. PYELONEPHRITIS. E COLI UTI 97.4 78 18 129/76 99% ON RA H/H-11.134.1 IS: IV ROCEPHIN QD JANUVIA PO QD IVF+KCL@75/HR HEPARIN SQ Q12 : MED/SURG STATUS 3 [facility] DCP: PATIENT IS FROM HOME
--- NOTE | 2019-03-18 10:58 | NUR ---
*--* INSURANCE *--* ALL CLINICALS AND REVIEWS HAVE BEEN FAXED TO: [facility] JADA: NATALI P:[phone] F:[phone] REF# [id number]
--- NOTE | 2019-03-18 11:51 | Infectious Diseases Prog Note ---
Assessment/Plan Assessment/Plan Ms. Mata is a 49 yo female with PMHx of DM who presented to the ED on 03/14 with Abdominal pain. Pyelonephritis B/L UCx 03/14/19 - E.coli (R Cipro/levo, amp, Genta; otherwise S) Fever to 102.5; improving No leukocytosis CT abd 03/14/19 - Bilateral renal patchy areas of hypoattenuation with bilateral urothelial thickening of the ureters and enhancement of the urothelium of the ureters and the bladder are concerning for UTI with bilateral pyelonephritis. Scattered liquid small bowel contents, which could represent an infectious or inflammatory enteritis. Likely incidental. Splenomegaly 15.6 cm AP, is of uncertain significance. Correlate clinically. Likely benign right ovarian functional follicle. Diabetes PLAN: - Continue Ceftriaxone #2 (abx d #/); upon discharge can be transition to Bactrim DS 1 tab bid - 03/17/19 SP Amikacin #2 and Aztreonam #3 - 03/15/19 S/P Vancomycin #1 - Monitor CBC and Temps Thank you for this consult. We will continue to follow the patient during this hospitalization. Discussed with RN and Dr Ochoa. Subjective Allergies: Coded Allergies: AMOXICILLIN (Verified Allergy, Unknown, 11/23/18) Subjective aFebrile >24hrs no leukocytosis Objective Vital Signs Last 24 Hour Vital Signs Date Time Temp Pulse Resp B/P (MAP) Pulse Ox O2 Delivery O2 Flow Rate FiO2 03/18/19 09:00 Room Air 03/18/19 08:00 97.4 78 18 127/78 (94) 94 03/18/19 07:15 74 16 97 Room Air 21 03/18/19 04:00 97.4 78 18 129/76 (93) 99 03/18/19 00:00 98.8 82 20 121/63 (82) 100 03/17/19 23:34 79 18 96 Room Air 21 03/17/19 21:00 Room Air 03/17/19 20:00 98.0 86 20 137/82 (100) 100 03/17/19 16:00 97.5 77 20 136/79 (98) 98 03/17/19 12:00 97.5 80 18 125/74 (91) 100 Height (Feet): 5 Height (Inches): 4.00 Weight (Pounds): 198 Objective Gen: NAD HEENT: NCAT, MMM, EOMI LUNGS: CTAB, No W CARDS: RRR, S1, S2 ABD: Soft, NT, ND, No R/G, + BS, No HSM, No Masses NEURO: A/O x 4, Strength and Sensation Grossly intact Laboratory Tests Test 03/18/19 07:44 White Blood Count 3.7 K/UL (4.8-10.8) L Red Blood Count 4.05 M/UL (4.20-5.40) L Hemoglobin 11.1 G/DL (12.0-16.0) L Hematocrit 34.1 % (37.0-47.0) L Mean Corpuscular Volume 84 FL (80-99) Mean Corpuscular Hemoglobin 27.4 PG (27.0-31.0) Mean Corpuscular Hemoglobin Concent 32.5 G/DL (32.0-36.0) Red Cell Distribution Width 13.3 % (11.6-14.8) Platelet Count 214 K/UL (150-450) Mean Platelet Volume 7.9 FL (6.5-10.1) Neutrophils (%) (Auto) 52.1 % (45.0-75.0) Lymphocytes (%) (Auto) 35.4 % (20.0-45.0) Monocytes (%) (Auto) 8.3 % (1.0-10.0) Eosinophils (%) (Auto) 3.0 % (0.0-3.0) Basophils (%) (Auto) 1.3 % (0.0-2.0) Erythrocyte Sedimentation Rate 54 MM/HR (0-20) H Sodium Level 142 MMOL/L (136-145) Potassium Level 4.1 MMOL/L (3.5-5.1) Chloride Level 106 MMOL/L (98-107) Carbon Dioxide Level 27 MMOL/L (21-32) Anion Gap 9 mmol/L (5-15) Blood Urea Nitrogen 10 mg/dL (7-18) Creatinine 0.7 MG/DL (0.55-1.30) Estimat Glomerular Filtration Rate > 60 mL/min (>60) Glucose Level 187 MG/DL (74-106) H Calcium Level 9.3 MG/DL (8.5-10.1) Phosphorus Level 4.6 MG/DL (2.5-4.9) Magnesium Level 1.7 MG/DL (1.8-2.4) L Total Bilirubin 0.4 MG/DL (0.2-1.0) Aspartate Amino Transf (AST/SGOT) 57 U/L (15-37) H Alanine Aminotransferase (ALT/SGPT) 65 U/L (12-78) Alkaline Phosphatase 104 U/L (46-116) C-Reactive Protein, Quantitative 8.0 mg/dL (0.00-0.90) H Total Protein 6.9 G/DL (6.4-8.2) Albumin 3.0 G/DL (3.4-5.0) L Globulin 3.9 g/dL Albumin/Globulin Ratio 0.8 (1.0-2.7) L Current Medications Medications (Trade) Dose Ordered Sig/Bib Route PRN Reason Start Time Stop Time Status Last Admin Dose Admin Acetaminophen (Tylenol) 650 mg NOW ORAL 03/15/19 03:45 04/14/19 03:44 03/17/19 04:40 Acetaminophen (Tylenol) 650 mg Q4H PRN ORAL fever 03/14/19 21:30 04/13/19 21:29 03/15/19 23:34 Albuterol/ Ipratropium (Albuterol/ Ipratropium) 3 ml Q4H PRN HHN Shortness of Breath 03/14/19 21:30 03/19/19 21:29 Ceftriaxone Sodium 1 gm/ Dextrose 55 ml @ 110 mls/hr DAILY IVPB 03/17/19 12:00 03/24/19 11:59 03/18/19 08:49 Dextrose (Dextrose 50%) 25 ml Q30M PRN IV Hypoglycemia 03/14/19 21:30 04/13/19 21:29 Heparin Sodium (Porcine) (Heparin 5000 units/ml) 5,000 units EVERY 12 HOURS SUBQ 03/15/19 09:00 04/14/19 08:59 03/17/19 08:57 Insulin Aspart (NovoLOG) BEFORE MEALS AND HS SUBQ 03/15/19 06:30 04/14/19 06:29 03/18/19 06:27 Iopamidol (Isovue-300 100ml) 100 ml NOW PRN INJ Radiology Procedure 03/14/19 17:30 Morphine Sulfate (Morphine Sulfate) 2 mg Q4H PRN IVP Moderate Pain (Pain Scale 4-6) 03/14/19 21:30 03/21/19 21:29 03/16/19 20:10 Nitroglycerin (Ntg) 0.4 mg Q5M PRN SL Prn Chest Pain 03/14/19 21:30 04/13/19 21:29 Ondansetron HCl (Zofran) 4 mg Q6H PRN IVP Nausea & Vomiting 03/14/19 21:30 04/13/19 21:29 03/15/19 08:35 Polyethylene Glycol (Miralax) 17 gm DAILYPRN PRN ORAL Constipation 03/14/19 21:30 04/13/19 21:29 03/16/19 11:57 Potassium Chloride/Sodium Chloride 1,000 ml @ 75 mls/hr [id number] IV 03/15/19 17:00 04/14/19 16:59 03/18/19 08:49 Sitagliptin Phosphate (Januvia) 50 mg ACBREAKFAST ORAL 03/16/19 06:30 04/15/19 06:29 Temazepam (Restoril) 15 mg HSPRN PRN ORAL Insomnia 03/14/19 21:30 03/21/19 21:29 Rhonda Francisco M.D. Mar 18, 2019 11:51
[2019-03-18] MEDS ORDERED: BACTRIM DS TAB1 EAC1 ORAL (11:56)
[2019-03-18 12:00] VITALS: BP 128/78
--- NOTE | 2019-03-18 12:08 | Pulmonology Progress Note ---
Assessment/Plan Problems: (1) Pyelonephritis (2) Sepsis (3) Diabetes mellitus Assessment/Plan improving GNR in urine, sensitivity available continue abx f/u ID recommendations f/u wbc sliding scale diabetic diet symptomatic treatment dvt prophylaxis. dc home with oral Bactrim as recommended by ID Subjective ROS Limited/Unobtainable: No Constitutional: Reports: no symptoms HEENT: Repors: other Respiratory: Reports: no symptoms Allergies: Coded Allergies: AMOXICILLIN (Verified Allergy, Unknown, 11/23/18) Objective Last 24 Hour Vital Signs Date Time Temp Pulse Resp B/P (MAP) Pulse Ox O2 Delivery O2 Flow Rate FiO2 03/18/19 09:00 Room Air 03/18/19 08:00 97.4 78 18 127/78 (94) 94 03/18/19 07:15 74 16 97 Room Air 21 03/18/19 04:00 97.4 78 18 129/76 (93) 99 03/18/19 00:00 98.8 82 20 121/63 (82) 100 03/17/19 23:34 79 18 96 Room Air 21 03/17/19 21:00 Room Air 03/17/19 20:00 98.0 86 20 137/82 (100) 100 03/17/19 16:00 97.5 77 20 136/79 (98) 98 Intake and Output 03/17/19 03/18/19 19:00 07:00 Intake Total 1825 ml 1225 ml Balance 1825 ml 1225 ml Intake Oral 1000 ml 400 ml IV Total 825 ml 825 ml # Voids 3 3 # Bowel Movements 1 Objective General Appearance: WD/WN HEENT: atraumatic Respiratory/Chest: chest wall non-tender, normal breath sounds Breasts: no masses Cardiovascular: normal rate Abdomen: soft, non tender, no mass Genitourinary: normal external genitalia Extremities: no clubbing Laboratory Tests 03/18/19 07:44: White Blood Count 3.7L, Red Blood Count 4.05L, Hemoglobin 11.1L, Hematocrit 34.1L, Mean Corpuscular Volume 84, Mean Corpuscular Hemoglobin 27.4, Mean Corpuscular Hemoglobin Concent 32.5, Red Cell Distribution Width 13.3, Platelet Count 214, Mean Platelet Volume 7.9, Neutrophils (%) (Auto) 52.1, Lymphocytes (% ) (Auto) 35.4, Monocytes (%) (Auto) 8.3, Eosinophils (%) (Auto) 3.0, Basophils ( %) (Auto) 1.3, Erythrocyte Sedimentation Rate 54H, Sodium Level 142, Potassium Level 4.1, Chloride Level 106, Carbon Dioxide Level 27, Anion Gap 9, Blood Urea Nitrogen 10, Creatinine 0.7, Estimat Glomerular Filtration Rate > 60, Glucose Level 187H, Calcium Level 9.3, Phosphorus Level 4.6, Magnesium Level 1.7L, Total Bilirubin 0.4, Aspartate Amino Transf (AST/SGOT) 57H, Alanine Aminotransferase (ALT/SGPT) 65, Alkaline Phosphatase 104, C-Reactive Protein, Quantitative 8.0H, Total Protein 6.9, Albumin 3.0L, Globulin 3.9, Albumin/ Globulin Ratio 0.8L Current Medications Medications (Trade) Dose Ordered Sig/Bib Route PRN Reason Start Time Stop Time Status Last Admin Dose Admin Acetaminophen (Tylenol) 650 mg NOW ORAL 03/15/19 03:45 04/14/19 03:44 03/17/19 04:40 Acetaminophen (Tylenol) 650 mg Q4H PRN ORAL fever 03/14/19 21:30 04/13/19 21:29 03/15/19 23:34 Albuterol/ Ipratropium (Albuterol/ Ipratropium) 3 ml Q4H PRN HHN Shortness of Breath 03/14/19 21:30 03/19/19 21:29 Ceftriaxone Sodium 1 gm/ Dextrose 55 ml @ 110 mls/hr DAILY IVPB 03/17/19 12:00 03/24/19 11:59 03/18/19 08:49 Dextrose (Dextrose 50%) 25 ml Q30M PRN IV Hypoglycemia 03/14/19 21:30 04/13/19 21:29 Heparin Sodium (Porcine) (Heparin 5000 units/ml) 5,000 units EVERY 12 HOURS SUBQ 03/15/19 09:00 04/14/19 08:59 03/17/19 08:57 Insulin Aspart (NovoLOG) BEFORE MEALS AND HS SUBQ 03/15/19 06:30 04/14/19 06:29 03/18/19 06:27 Iopamidol (Isovue-300 100ml) 100 ml NOW PRN INJ Radiology Procedure 03/14/19 17:30 Morphine Sulfate (Morphine Sulfate) 2 mg Q4H PRN IVP Moderate Pain (Pain Scale 4-6) 03/14/19 21:30 03/21/19 21:29 03/16/19 20:10 Nitroglycerin (Ntg) 0.4 mg Q5M PRN SL Prn Chest Pain 03/14/19 21:30 04/13/19 21:29 Ondansetron HCl (Zofran) 4 mg Q6H PRN IVP Nausea & Vomiting 03/14/19 21:30 04/13/19 21:29 03/15/19 08:35 Polyethylene Glycol (Miralax) 17 gm DAILYPRN PRN ORAL Constipation 03/14/19 21:30 04/13/19 21:29 03/16/19 11:57 Potassium Chloride/Sodium Chloride 1,000 ml @ 75 mls/hr [id number] IV 03/15/19 17:00 04/14/19 16:59 03/18/19 08:49 Sitagliptin Phosphate (Januvia) 50 mg ACBREAKFAST ORAL 03/16/19 06:30 04/15/19 06:29 Temazepam (Restoril) 15 mg HSPRN PRN ORAL Insomnia 03/14/19 21:30 03/21/19 21:29 Qi Ochoa MD Mar 18, 2019 12:08
--- NOTE | 2019-03-18 15:15 | NUR ---
NURSE NOTES: Patient discharged home as ordered. Stable. Denies pain or SOB. Patient has all belongings. Patient was given thorough discharge instructions by RN, patient verbalized understanding. Patient has medication that was delivered from [facility]. Patient was given thorough medication education, patient verbalized understanding. No IV access. Skin is clean, dry, and intact. Patient left the hospital with .
--- NOTE | 2019-03-20 17:00 | Discharge Summary ---
Discharge Summary Discharge Summary _ DATE OF ADMISSION: 03/14/2019 DATE OF DISCHARGE: 03/18/2019 DISCHARGED BY: Dr. Carlson REASON FOR ADMISSION: 49 years old female with past medical history of diabetes mellitus type 2, dyslipidemia, presented to emergency department complaining of abdominal pain , associated with bilateral flank pain for about a week. Patient went to see her primary physician and subsequently was prescribed Cipro for 7 days for urinary tract infection. However she was getting progressively worse ; pain was increased and was associated with fever and chills. Patient denied hematuria. No nausea or vomiting. In the emergency room patient was febrile with temperature 102.5 and tachycardic. Laboratory work-up revealed no leukocytosis , stable hemoglobin and hematocrit. Stable electrolytes . glucose 226. Urinalysis revealed evidence of pyuria and hematuria. Urine test was negative. CT of the abdomen and pelvis demonstrated bilateral renal patchy areas of hypoattenuation with bilateral urothelial thickening of the ureters and enhancement of the urothelium of the ureters and the bladder , concerning for UTI with bilateral pyelonephritis. No renal abscess noted . Patient subsequently was admitted with sepsis secondary to urinary infection , possible pyelonephritis. CONSULTANTS: pulmonary /critical care Dr. Ochoa ID specialist Dr. Castro [facility] COURSE: Patient admitted to medical surgical floor. Patient started on IV fluid and empiric antibiotics. ID specialist closely followed. Urine culture revealed E. coli. Antibiotic optimized based on cultures as per ID specialist recommendation. Symptomatic treatment provided. Antiemetic provided as needed. Pain management was addressed. Bowel regimen instituted. Blood sugar was managed with Januvia and remained stable. DVT prophylaxis provided No leukocytosis . Fevers resolved. Patient was on IV antibiotic while in the hospital and transition to oral Bactrim to complete the treatment as outpatient. Patient clinically stabilized and was ready for discharge. FINAL DIAGNOSES: Bilateral pyelonephritis Diabetes mellitus DISCHARGE MEDICATIONS: See Medication Reconciliation list. DISCHARGE INSTRUCTIONS: Patient was discharged home . Follow up with primary care provider in one week. I have been assigned to dictate discharge summary for this account. I was not involved in the patient's management. Anahi Munroe NP Mar 20, 2019 17:00
== END 2019-03-18 15:05 | disposition home or self-care (01) | DRG 872 ==
LOC: EMR 17:40 → 3E 20:29 → EDBEDREQ 20:39 → 3E 03-16 00:15
DX: A41.9 Sepsis, unspecified organism (principal); N10 Acute pyelonephritis; N39.0 Urinary tract infection, site not specified; N13.30 Unspecified hydronephrosis; E11.9 Type 2 diabetes mellitus without complications; E78.5 Hyperlipidemia, unspecified; B96.20 Unspecified Escherichia coli [E. coli] as the cause of diseases classified elsewhere
CPT/HCPCS: 36415; 74177; 80053; 80150; 81003; 81025; 82248; 82962; 83690; 83735; 84100; 85025; 85651; 86140; 87086; 87181; 94664; 96361; 96365; 96375; 99285; J1815; J2405; S0077